=== PATIENT | male | born 1955 | race Caucasian/White ===

== ENCOUNTER 2024-09-30 13:44 | Emergency (ER) | payer MEDICARE, SELFPAY ==
--- NOTE | ~2024-09-30 | XR_ITS ---
EXAM: XR hand LT min 3V DATE: 09/30/2024 16:32 HISTORY: Lesion of hand . COMPARISON: None available. FINDINGS: Normal mineralization. No acute fracture or dislocation. Likely old left fourth distal tuf t fracture, healed in mild deformity No lytic or blastic lesion. Joint spaces are maintained. No eros ion or periosteal change. Ovoid 0.7 x 2.0 cm soft tissue density in the dorsal soft tissues, seen bes t in the lateral view at the level of the CMC joint, probably projecting over the proximal first inte rmetatarsal space in the frontal view. IMPRESSION: No acute osseous finding in the left hand. 0.7 x 2.0 cm dorsal soft tissue lesion. Reviewed, dictated and finalized at location K.
[2024-09-30 13:51] VITALS: BP 166/63; PULSE 62; RESP 20; TEMP 36.3; O2SAT 98
--- OUTSIDE RECORDS SUMMARY | 2024-09-30 15:53 | XMS_ITS | Encounter Summary ---
Author Organization [facility] Address 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 Gender Identity Not on file Sexual Orientation Not on file documented as of this encounter Plan of Treatment Upcoming Encounters Date Type Department Care Team (Late st Contact Info) Description 12/26/2024 3:00 PM CDT Office Visit [facility] [address] [address] [place] [address] [place] [address] documented as of this encounter Visit Diagnoses Not on filedocumented in this encounter Care Teams Dialysis Chief Equipment Technician Relationship Specialty Start Date End Date Naye Scott MD [address] [place] [address] PCP - General Internal Medicine 09/15/11 documented as of this encounter
--- OUTSIDE RECORDS SUMMARY | 2024-09-30 15:53 | XMS_ITS | Encounter Summary ---
Author Organization [facility] Address 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 Gender Identity Not on file Sexual Orientation Not on file documented as of this encounter Plan of Treatment Upcoming Encounters Date Type Department Care Team (Late st Contact Info) Description 12/26/2024 3:00 PM CDT Office Visit [facility] Internal Medicine [address] [address] [place] [address] [place] [address] documented as of this encounter Visit Diagnoses Not on filedocumented in this encounter Care Teams Social Worker Psychiatric Relationship Specialty Start Date End Date Naye Scott MD [address] [place] [address] PCP - General Internal Medicine 09/15/11 documented as of this encounter
--- OUTSIDE RECORDS SUMMARY | 2024-09-30 15:53 | XMS_ITS | Encounter Summary ---
Author Organization [facility] Address 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 DIRECTOR OF 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 Gender Identity Not on file Sexual Orientation Not on file documented as of this encounter Plan of Treatment Upcoming Encounters Date Type Department Care Team (Late st Contact Info) Description 12/26/2024 3:00 PM CDT Office Visit [facility] Internal Medicine [place] [address] [place] [address] [place] [address] [place] [address] documented as of this encounter Visit Diagnoses Diagnosis Type II or unspecified type diabetes mellitus without mention of complication, not stated as uncontrolled documented in this encounter Care Teams Risk Control Field Representative Relationship Specialty [place] [address] [place] [address] PCP - General Internal Medicine 09/15/11 documented as of this encounter
--- OUTSIDE RECORDS SUMMARY | 2024-09-30 15:53 | XMS_ITS | Encounter Summary ---
Author Organization [facility] Address 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 Gender Identity Not on file Sexual Orientation Not on file documented as of this encounter Plan of Treatment Upcoming Encounters Date Type Department Care Team (Late st Contact Info) Description 12/26/2024 3:00 PM CDT Office Visit [facility] Internal Medicine [place] [place] [address] [place] [address] [place] [address] documented as of this encounter Visit Diagnoses Diagnosis Unspecified essential hypertension documented in this encounter Care Teams Door Serviceman Relationship Specialty [place] [address] [place] [address] PCP - General Internal Medicine 09/15/11 documented as of this encounter
--- OUTSIDE RECORDS SUMMARY | 2024-09-30 15:53 | XMS_ITS | Encounter Summary ---
Author Organization [facility] Address 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 Gender Identity Not on file Sexual Orientation Not on file documented as of this encounter Plan of Treatment Upcoming Encounters Date Type Department Care Team (Late st Contact Info) Description 12/26/2024 3:00 PM CDT Office Visit [facility] Internal Medicine [address] [address] [place] [address] [place] [address] documented as of this encounter Visit Diagnoses Not on filedocumented in this encounter Care Teams Coupon Clerk Relationship Specialty Start Date End Date Naye Scott MD [address] [place] [address] PCP - General Internal Medicine 09/15/11 documented as of this encounter
--- OUTSIDE RECORDS SUMMARY | 2024-09-30 15:53 | XMS_ITS | Encounter Summary ---
Author Organization [facility] Address 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 Gender Identity Not on file Sexual Orientation Not on file documented as of this encounter Plan of Treatment Upcoming Encounters Date Type Department Care Team (Late st Contact Info) Description 12/26/2024 3:00 PM CDT Office Visit [facility] Internal Medicine [address] [address] [place] [address] [place] [address] documented as of this encounter Visit Diagnoses Not on filedocumented in this encounter Care Teams Tongsman Relationship Specialty Start Date End Date Naye Scott MD [address] [place] [address] PCP - General Internal Medicine 09/15/11 documented as of this encounter
--- OUTSIDE RECORDS SUMMARY | 2024-09-30 15:53 | XMS_ITS | Encounter Summary ---
Author Organization [facility] Address 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 Gender Identity Not on file Sexual Orientation Not on file documented as of this encounter Plan of Treatment Upcoming Encounters Date Type Department Care Team (Late st Contact Info) Description 12/26/2024 3:00 PM CDT Office Visit [facility] Internal Medicine [address] [address] [place] [address] [place] [address] documented as of this encounter Visit Diagnoses Not on filedocumented in this encounter Care Teams Associate Professor Physician Relationship Specialty Start Date End Date Naye Scott MD [address] [place] [address] PCP - General Internal Medicine 09/15/11 documented as of this encounter
--- OUTSIDE RECORDS SUMMARY | 2024-09-30 15:53 | XMS_ITS | Encounter Summary ---
Author Organization [facility] Address 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 Gender Identity Not on file Sexual Orientation Not on file documented as of this encounter Plan of Treatment Upcoming Encounters Date Type Department Care Team (Late st Contact Info) Description 12/26/2024 3:00 PM CDT Office Visit [facility] Internal Medicine [address] [address] [place] [address] [place] [address] documented as of this encounter Visit Diagnoses Not on filedocumented in this encounter Care Teams Retail Director Relationship Specialty Start Date End Date Naye Scott MD [address] [place] [address] PCP - General Internal Medicine 09/15/11 documented as of this encounter
--- OUTSIDE RECORDS SUMMARY | 2024-09-30 15:53 | XMS_ITS | Encounter Summary ---
Author Organization [facility] Address 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 Gender Identity Not on file Sexual Orientation Not on file documented as of this encounter Plan of Treatment Upcoming Encounters Date Type Department Care Team (Late st Contact Info) Description 12/26/2024 3:00 PM CDT Office Visit [facility] Internal Medicine [address] [address] [place] [address] [place] [address] documented as of this encounter Visit Diagnoses Not on filedocumented in this encounter Care Teams Telehealth Nurse Educator Relationship Specialty Start Date End Date Naye Scott MD [address] [place] [address] PCP - General Internal Medicine 09/15/11 documented as of this encounter
--- OUTSIDE RECORDS SUMMARY | 2024-09-30 15:53 | XMS_ITS | Encounter Summary ---
Author Organization [facility] Address 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 Gender Identity Not on file Sexual Orientation Not on file documented as of this encounter Plan of Treatment Upcoming Encounters Date Type Department Care Team (Late st Contact Info) Description 12/26/2024 3:00 PM CDT Office Visit [facility] Internal Medicine [address] [address] [place] [address] [place] [address] documented as of this encounter Visit Diagnoses Not on filedocumented in this encounter Care Teams Wallpaperer Relationship Specialty Start Date End Date Naye Scott MD [address] [place] [address] PCP - General Internal Medicine 09/15/11 documented as of this encounter
--- OUTSIDE RECORDS SUMMARY | 2024-09-30 15:53 | XMS_ITS | Encounter Summary ---
Author Organization [facility] Address 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 DIRECTOR Gender Identity Not on file Sexual Orientation Not on file documented as of this encounter Plan of Treatment Upcoming Encounters Date Type Department Care Team (Late st Contact Info) Description 12/26/2024 3:00 PM CDT Office Visit [facility] Internal Medicine [address] [address] [place] [address] [place] [address] documented as of this encounter Visit Diagnoses Not on filedocumented in this encounter Care Teams Brand Ambassadors Promotional Sales Relationship Specialty Start Date End Date Naye Scott MD [address] [place] [address] PCP - General Internal Medicine 09/15/11 documented as of this encounter
--- OUTSIDE RECORDS SUMMARY | 2024-09-30 15:53 | XMS_ITS | Encounter Summary ---
Author Organization [facility] Address [address] [place] [address] Care Team Providers Care Warehouse Team Leader Name Role Phone Naye Scott MD Primary Care Provider [phone] Encounter Details Date Type Department Care Team (Latest Contact Info) Description 09/26/2006 Outpatient Historical [facility] Rui Kilgore MD [address] [place] [address] DM w/o Complication Type II, Uncontrolled (Primary Dx) Social History Tobacco Use Types Packs/Day Years Used Date Smoking Tobacco: Never Assessed Sex and Gender Information Value Date Recorded Sex Assigned at Not on file Legal Sex Male 3:23 AM KIER HAND Gender Identity Not on file Sexual Orientation Not on file documented as of this encounter Plan of Treatment Upcoming Encounters Date Type Department Care Team (Late st Contact Info) Description 12/26/2024 3:00 PM CDT Office Visit [facility] Internal Medicine [place] [address] [place] [address] [place] [address] [place] [address] documented as of this encounter Visit Diagnoses Diagnosis Type II or unspecified type diabetes mellitus without mention of complication, uncontrolled- Primary documented in this encounter Care Teams Warehouse Team Leader Relationship Specialty [place] [address] [place] [address] PCP - General Internal Medicine 09/15/11 documented as of this encounter
--- OUTSIDE RECORDS SUMMARY | 2024-09-30 15:53 | XMS_ITS | Encounter Summary ---
Author Organization [facility] Address 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 Gender Identity Not on file Sexual Orientation Not on file documented as of this encounter Plan of Treatment Upcoming Encounters Date Type Department Care Team (Late st Contact Info) Description 12/26/2024 3:00 PM CDT Office Visit [facility] Internal Medicine [address] [address] [place] [address] [place] [address] documented as of this encounter Visit Diagnoses Not on filedocumented in this encounter Care Teams Underground Distribution Engineer Relationship Specialty Start Date End Date Naye Scott MD [address] [place] [address] PCP - General Internal Medicine 09/15/11 documented as of this encounter
--- OUTSIDE RECORDS SUMMARY | 2024-09-30 15:53 | XMS_ITS | Encounter Summary ---
Author Organization [facility] Address 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 Gender Identity Not on file Sexual Orientation Not on file documented as of this encounter Plan of Treatment Upcoming Encounters Date Type Department Care Team (Late st Contact Info) Description 12/26/2024 3:00 PM CDT Office Visit [facility] Internal Medicine [address] [address] [place] [address] [place] [address] documented as of this encounter Visit Diagnoses Not on filedocumented in this encounter Care Teams General Helper Relationship Specialty Start Date End Date Naye Scott MD [address] [place] [address] PCP - General Internal Medicine 09/15/11 documented as of this encounter
--- OUTSIDE RECORDS SUMMARY | 2024-09-30 15:53 | XMS_ITS | Encounter Summary ---
Author Organization [facility] Address 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 Gender Identity Not on file Sexual Orientation Not on file documented as of this encounter Plan of Treatment Upcoming Encounters Date Type Department Care Team (Late st Contact Info) Description 12/26/2024 3:00 PM CDT Office Visit [facility] Internal Medicine [address] [address] [place] [address] [place] [address] documented as of this encounter Visit Diagnoses Not on filedocumented in this encounter Care Teams Supervisor Soakers Relationship Specialty Start Date End Date Naye Scott MD [address] [place] [address] PCP - General Internal Medicine 09/15/11 documented as of this encounter
--- OUTSIDE RECORDS SUMMARY | 2024-09-30 15:53 | XMS_ITS | Encounter Summary ---
Author Organization [facility] Address 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 Gender Identity Not on file Sexual Orientation Not on file documented as of this encounter Plan of Treatment Upcoming Encounters Date Type Department Care Team (Late st Contact Info) Description 12/26/2024 3:00 PM CDT Office Visit [facility] Internal Medicine [address] [address] [place] [address] [place] [address] documented as of this encounter Visit Diagnoses Not on filedocumented in this encounter Care Teams Biomass Facilitator Relationship Specialty Start Date End Date Naye Scott MD [address] [place] [address] PCP - General Internal Medicine 09/15/11 documented as of this encounter
--- OUTSIDE RECORDS SUMMARY | 2024-09-30 15:53 | XMS_ITS | Encounter Summary ---
Author Organization [facility] Address 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 Gender Identity Not on file Sexual Orientation Not on file documented as of this encounter Plan of Treatment Upcoming Encounters Date Type Department Care Team (Late st Contact Info) Description 12/26/2024 3:00 PM CDT Office Visit [facility] Internal Medicine [address] [address] [place] [address] [place] [address] documented as of this encounter Visit Diagnoses Not on filedocumented in this encounter Care Teams Hardwood Floor Layer Relationship Specialty Start Date End Date Naye Scott MD [address] [place] [address] PCP - General Internal Medicine 09/15/11 documented as of this encounter
--- OUTSIDE RECORDS SUMMARY | 2024-09-30 15:53 | XMS_ITS | Encounter Summary ---
Author Organization [facility] Address 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 Gender Identity Not on file Sexual Orientation Not on file documented as of this encounter Plan of Treatment Upcoming Encounters Date Type Department Care Team (Late st Contact Info) Description 12/26/2024 3:00 PM CDT Office Visit [facility] Internal Medicine [address] [address] [place] [address] [place] [address] documented as of this encounter Visit Diagnoses Not on filedocumented in this encounter Care Teams Air Intercept Controller Supervisor Relationship Specialty Start Date End Date Naye Scott MD [address] [place] [address] PCP - General Internal Medicine 09/15/11 documented as of this encounter
--- OUTSIDE RECORDS SUMMARY | 2024-09-30 15:53 | XMS_ITS | Encounter Summary ---
Author Organization [facility] Address 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 Gender Identity Not on file Sexual Orientation Not on file documented as of this encounter Plan of Treatment Upcoming Encounters Date Type Department Care Team (Late st Contact Info) Description 12/26/2024 3:00 PM CDT Office Visit [facility] Internal Medicine [address] [address] [place] [address] [place] [address] documented as of this encounter Visit Diagnoses Not on filedocumented in this encounter Care Teams Child Care Nurse Relationship Specialty Start Date End Date Naye Scott MD [address] [place] [address] PCP - General Internal Medicine 09/15/11 documented as of this encounter
--- OUTSIDE RECORDS SUMMARY | 2024-09-30 15:53 | XMS_ITS | Encounter Summary ---
Author Organization [facility] Address 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 DIRECTOR Gender Identity Not on file Sexual Orientation Not on file documented as of this encounter Plan of Treatment Upcoming Encounters Date Type Department Care Team (Late st Contact Info) Description 12/26/2024 3:00 PM CDT Office Visit [facility] Internal Medicine [address] [address] [place] [address] [place] [address] documented as of this encounter Visit Diagnoses Not on filedocumented in this encounter Care Teams Associate Accountant Relationship Specialty Start Date End Date Naye Scott MD [address] [place] [address] PCP - General Internal Medicine 09/15/11 documented as of this encounter
--- OUTSIDE RECORDS SUMMARY | 2024-09-30 15:53 | XMS_ITS | Encounter Summary ---
Author Organization [facility] Address 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 Gender Identity Not on file Sexual Orientation Not on file documented as of this encounter Plan of Treatment Upcoming Encounters Date Type Department Care Team (Late st Contact Info) Description 12/26/2024 3:00 PM CDT Office Visit [facility] [place] Internal Medicine [address] [address] [place] [address] [place] [address] documented as of this encounter Visit Diagnoses Not on filedocumented in this encounter Care Teams Manager Nicu Relationship Specialty Start Date End Date Naye Scott MD [address] [place] [address] PCP - General Internal Medicine 09/15/11 documented as of this encounter
--- OUTSIDE RECORDS SUMMARY | 2024-09-30 15:53 | XMS_ITS | Encounter Summary ---
Author Organization [facility] Address 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 Gender Identity Not on file Sexual Orientation Not on file documented as of this encounter Plan of Treatment Upcoming Encounters Date Type Department Care Team (Late st Contact Info) Description 12/26/2024 3:00 PM CDT Office Visit [facility] Internal Medicine [address] [place] [address] [place] [address] [place] [address] documented as of this encounter Visit Diagnoses Diagnosis Essential hypertension, benign- Primary documented in this encounter Care Teams Aeronautical Engineering Officer Relationship Specialty Start Date End Date Naye Scott MD [address] [place] [address] PCP - General Internal Medicine 09/15/11 documented as of this encounter
--- OUTSIDE RECORDS SUMMARY | 2024-09-30 15:53 | XMS_ITS | Encounter Summary ---
Author Organization [facility] Address 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 ENGINE TESTER Gender Identity Not on file Sexual Orientation Not on file documented as of this encounter Plan of Treatment Upcoming Encounters Date Type Department Care Team (Late st Contact Info) Description 12/26/2024 3:00 PM CDT Office Visit [facility] Internal Medicine [address] [address] [place] [address] [place] [address] documented as of this encounter Procedures Procedure Name Priority Date/Time Associated Diagnosis Comments ALT Routine 06/11/2007 4:40 PM ROCKET ENGINE TESTER HEMOGLOBIN A1C Routine 06/11/2007 4:40 PM ROCKET ENGINE TESTER LIPID PANEL Routine 06/11/2007 4:40 PM ROCKET ENGINE TESTER BASIC METABOLIC PANEL Routine 06/11/2007 4:40 PM ROCKET ENGINE TESTER documented in this encounter Results * (ABNORMAL) HEMOGLOBIN A1C (06/11/2007 4:40 PM ROCKET ENGINE TESTER) Pathologist [facility] HEMOGLOBIN A1C 8.3(H) 4.1 - 6.1 % of Hgb INTERFACE SYSTEM GLUCOSE, MEAN BLOOD 218 mg/dL INTERFACE SYSTEM 06/11/2007 4:40 PM ROCKET ENGINE TESTER Rui Kilgore MD CHEMISTRY ORDERABLES Edited Performing Organization Address [facility] Co de Phone Number INTERFACE SYSTEM Refer to clinic/hospital department * ALT (06/11/2007 4:40 PM ROCKET ENGINE TESTER) Pathologist [facility] ALT 31 0 - 41 U/L INTERFACE SYSTEM 06/11/2007 4:40 PM ROCKET ENGINE TESTER Rui Kilgore MD CHEMISTRY ORDERABLES Edited Performing Organization Address [facility] Phone Number INTERFACE SYSTEM Refer to clinic/hospital department * (ABNORMAL) LIPID PANEL (06/11/2007 4:40 PM ROCKET ENGINE TESTER) Pathologist [facility] CHOLESTEROL 244(H) 100 - 199 mg/dL INTERFACE SYSTEM TRIGLYCERIDE 222(H) 10 - 149 mg/dL INTERFACE SYSTEM HDL 41 40 - 59 mg/dL INTERFACE SYSTEM CHOL/HDL RATIO 6.0(H) 2.0 - 5.0 INTER FACE SYSTEM LDL CALCULATED 159(H) <=99 mg/dL INTERFACE SYSTEM LIPID PANEL COMMENT See Below INTERFACE SYSTEM Comment: The adult ATP and pediatric NCEP classifications for lipids are available on the [facility]an[facility] at: [email or web address] Select: Lab Policies and Procedures,Current Select: Lipid Panel Interpretation 06/11/2007 4:40 PM ROCKET ENGINE TESTER Rui Kilgore MD CHEMISTRY ORDERABLES Edited Performing Organization Address [facility] Co de Phone Number INTERFACE SYSTEM Refer to clinic/hospital department * (ABNORMAL) BASIC METABOLIC PANEL (06/11/2007 4:40 PM ROCKET ENGINE TESTER) SODIUM 140 135 - 145 mmol/L INTERFACE SYSTEM POTASSIUM 2.9(L) 3.5 - 4.9 mmol/L INTERFACE SYSTEM CHLORIDE 98 96 - 108 mmol/L INTERFACE SYSTEM GLUCOSE 95 65 - 99 mg/dL INTERFACE SYSTEM CREATININE 1.11 0.67 - 1.17 mg/dL INTERFACE SYSTEM CALCIUM 9.1 8.4 - 10.2 mg/dL INTERFACE SYSTEM BUN 17 6 - 20 mg/dL INTERFACE SYSTEM CO2 32(H) 22 - 30 mmol/L INTERFACE SYSTEM GFR, >60 >=60 mL/min/1. 7 sq meter INTERFACE SYSTEM GFR >60 >=60 mL/min/1. 7 sq meter INTERFACE SYSTEM Comment: Estimated GFR rate interpretative information for both Americans and non- Americans is available on the [facility] Intran[facility] at: [email or web address] Select: Lab Policies and Procedures Select: Reference Ranges - GFR 06/11/2007 4:40 PM ROCKET ENGINE TESTER us Rui Kilgore MD CHEMISTRY ORDERABLES Edited INTERFACE SYSTEM Refer to clinic/hospital department documented in this encounter Visit Diagnoses Diagnosis Type II or unspecified type diabetes mellitus without mention of complication, not stated as uncontrolled documented in this encounter Care Teams Equipment Maintenance Tech Relationship Specialty [place] [address] [place] [address] PCP - General Internal Medicine 09/15/11 documented as of this encounter
--- OUTSIDE RECORDS SUMMARY | 2024-09-30 15:53 | XMS_ITS | Encounter Summary ---
Author Organization [facility] Address 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 Gender Identity Not on file Sexual Orientation Not on file documented as of this encounter Plan of Treatment Upcoming Encounters Date Type Department Care Team (Late st Contact Info) Description 12/26/2024 3:00 PM CDT Office Visit [facility] Internal Medicine [address] [address] [place] [address] [place] [address] documented as of this encounter Visit Diagnoses Not on filedocumented in this encounter Care Teams Living Supervisor Relationship Specialty Start Date End Date Naye Scott MD [address] [place] [address] PCP - General Internal Medicine 09/15/11 documented as of this encounter
--- OUTSIDE RECORDS SUMMARY | 2024-09-30 15:53 | XMS_ITS | Encounter Summary ---
Author Organization [facility] Address 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 Gender Identity Not on file Sexual Orientation Not on file documented as of this encounter Plan of Treatment Upcoming Encounters Date Type Department Care Team (Late st Contact Info) Description 12/26/2024 3:00 PM CDT Office Visit [facility] Internal Medicine [address] [place] [address] [place] [address] [place] [address] documented as of this encounter Visit Diagnoses Diagnosis Essential hypertension, benign- Primary documented in this encounter Care Teams Administrative Support Assistant Relationship Specialty Start Date End Date Naye Scott MD [address] [place] [address] PCP - General Internal Medicine 09/15/11 documented as of this encounter
--- OUTSIDE RECORDS SUMMARY | 2024-09-30 15:53 | XMS_ITS | Encounter Summary ---
Author Organization [facility] Address 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 Gender Identity Not on file Sexual Orientation Not on file documented as of this encounter Plan of Treatment Upcoming Encounters Date Type Department Care Team (Late st Contact Info) Description 12/26/2024 3:00 PM CDT Office Visit [facility] Internal Medicine [address] [place] [address] [place] [address] [place] [address] documented as of this encounter Visit Diagnoses Diagnosis Personal history of other diseases of circulatory system- Primary documented in this encounter Care Teams Auditor Supervisor Relationship Specialty Start Date End Date Naye Scott MD [address] [place] [address] PCP - General Internal Medicine 09/15/11 documented as of this encounter
--- OUTSIDE RECORDS SUMMARY | 2024-09-30 15:53 | XMS_ITS | Encounter Summary ---
Author Organization [facility] Address 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 Gender Identity Not on file Sexual Orientation Not on file documented as of this encounter Plan of Treatment Upcoming Encounters Date Type Department Care Team (Late st Contact Info) Description 12/26/2024 3:00 PM CDT Office Visit [facility] Internal Medicine [address] [address] [place] [address] [place] [address] documented as of this encounter Visit Diagnoses Not on filedocumented in this encounter Care Teams Credit Card Specialist Relationship Specialty Start Date End Date Naye Scott MD [address] [place] [address] PCP - General Internal Medicine 09/15/11 documented as of this encounter
--- OUTSIDE RECORDS SUMMARY | 2024-09-30 15:53 | XMS_ITS | Encounter Summary ---
Author Organization [facility] Address 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 Gender Identity Not on file Sexual Orientation Not on file documented as of this encounter Plan of Treatment Upcoming Encounters Date Type Department Care Team (Late st Contact Info) Description 12/26/2024 3:00 PM CDT Office Visit [facility] Internal Medicine [address] [address] [place] [address] [place] [address] documented as of this encounter Procedures Procedure Name Priority Date/Time Associated Diagnosis Comments HEMOGLOBIN AND HEMATOCRIT Routine 10/11/2004 3:10 PM CDT BASIC METABOLIC PANEL Routine 10/11/2004 3:10 PM CDT documented in this encounter Results * (ABNORMAL) HEMOGLOBIN AND HEMATOCRIT (10/11/2004 3:10 PM CDT) HEMOGLOBIN 12.8(L) 13.6 - 16.5 g/dL INTERFACE SYSTEM HEMATOCRIT 37.9(L) 40.0 - 48.0 % INTERFACE SYSTEM 10/11/2004 3:10 PM CDT Blake Flor Sr., MD HEMATOLOGY ORDERABLES Fi nal Result Performing Organization Address [facility] de Phone Number INTERFACE SYSTEM Refer to clinic/hospital department * (ABNORMAL) BASIC METABOLIC PANEL (10/11/2004 3:10 PM CDT) GLUCOSE 116(H) 65 - 109 mg/dL INTERFACE SYSTEM CREATININE 1.2 0.5 - 1.3 mg/dL INTERFACE SYSTEM CALCIUM 9.5 8.6 - 10.2 mg/dL INTERFACE SYSTEM BUN 12 6 - 20 mg/dL INTERFACE SYSTEM SODIUM 141 135 - 145 mmol/L INTERFACE SYSTEM POTASSIUM 3.3(L) 3.5 - 4.9 mmol/L INTERFACE SYSTEM CHLORIDE 101 96 - 108 mmol/L INTERFACE SYSTEM CO2 28 22 - 30 mmol/L INTERFACE SYSTEM 10/11/2004 3:10 PM CDT Blake Flor Sr., MD CHEMISTRY ORDERABLES Fin al Result Performing Organization Address [facility] de Phone Number INTERFACE SYSTEM Refer to clinic/hospital department documented in this encounter Visit Diagnoses Diagnosis Umbilical hernia with obstruction- Primary documented in this encounter Care Teams Band Booker Relationship Specialty [place] [address] [place] [address] PCP - General Internal Medicine 09/15/11 documented as of this encounter
--- OUTSIDE RECORDS SUMMARY | 2024-09-30 15:53 | XMS_ITS | Encounter Summary ---
Author Organization [facility] Address [address] [place] [address] Care Team Providers Care Seed Production Field Supervisor Name Role Phone Naye Scott MD Primary Care Provider [phone] Encounter Details Date Type Department Care Team (Late st Contact Info) Description 01/07/2001 Outpatient Historical [facility] Internal Medicine [address] [address] Rui Kilgore MD [address] [place] [address] Social History Tobacco Use Types Packs/Day Years Used Date Smoking Tobacco: Never Assessed Sex and Gender Information Value Date Recorded Sex Assigned at Not on file Legal Sex Male 3:23 AM BOX COVERER HAND Gender Identity Not on file Sexual Orientation Not on file documented as of this encounter Plan of Treatment Upcoming Encounters Date Type Department Care Team (Late st Contact Info) Description 12/26/2024 3:00 PM CDT Office Visit [facility] Internal Medicine [address] [address] [place] [address] [place] [address] documented as of this encounter Visit Diagnoses Not on filedocumented in this encounter Care Teams Seed Production Field Supervisor Relationship Specialty Start Date End Date Naye Scott MD [address] [place] [address] PCP - General Internal Medicine 09/15/11 documented as of this encounter
--- OUTSIDE RECORDS SUMMARY | 2024-09-30 15:53 | XMS_ITS | Encounter Summary ---
Author Organization [facility] Address 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 Gender Identity Not on file Sexual Orientation Not on file documented as of this encounter Plan of Treatment Upcoming Encounters Date Type Department Care Team (Late st Contact Info) Description 12/26/2024 3:00 PM CDT Office Visit [facility] Internal Medicine [address] [address] [place] [address] [place] [address] documented as of this encounter Visit Diagnoses Not on filedocumented in this encounter Care Teams Demo Specialist Relationship Specialty Start Date End Date Naye Scott MD [address] [place] [address] PCP - General Internal Medicine 09/15/11 documented as of this encounter
--- OUTSIDE RECORDS SUMMARY | 2024-09-30 15:53 | XMS_ITS | Encounter Summary ---
Author Organization [facility] Address 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 Gender Identity Not on file Sexual Orientation Not on file documented as of this encounter Plan of Treatment Upcoming Encounters Date Type Department Care Team (Late st Contact Info) Description 12/26/2024 3:00 PM CDT Office Visit [facility] Internal Medicine [address] [address] [place] [address] [place] [address] documented as of this encounter Visit Diagnoses Not on filedocumented in this encounter Care Teams Jewel Hole Cornerer Relationship Specialty Start Date End Date Naye Scott MD [address] [place] [address] PCP - General Internal Medicine 09/15/11 documented as of this encounter
--- OUTSIDE RECORDS SUMMARY | 2024-09-30 15:54 | XMS_ITS | Encounter Summary ---
Author Organization [facility] Address 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 Gender Identity Not on file Sexual Orientation Not on file documented as of this encounter Plan of Treatment Upcoming Encounters Date Type Department Care Team (Late st Contact Info) Description 12/26/2024 3:00 PM CDT Office Visit [facility] Internal Medicine [address] [address] [place] [address] [place] [address] documented as of this encounter Visit Diagnoses Not on filedocumented in this encounter Care Teams Chief Reservoir Engineering Relationship Specialty Start Date End Date Naye Scott MD [address] [place] [address] PCP - General Internal Medicine 09/15/11 documented as of this encounter
--- OUTSIDE RECORDS SUMMARY | 2024-09-30 15:54 | XMS_ITS | Encounter Summary ---
Author Organization [facility] Address [address] [place] [address] Care Team Providers Care Analytical Tech Name Role Phone Naye Scott MD Primary Care Provider [phone] Encounter Details Date Type Department Care Team (Late Contact Info) Description 04/15/1999 Outpatient Historical [facility] Internal Medicine [address] [address] Rui Kilgore MD [address] [place] [address] Social History Tobacco Use Types Packs/Day Years Used Date Smoking Tobacco: Never Assessed Sex and Gender Information Value Date Recorded Sex Assigned at Not on file Legal Sex Male 3:23 AM ENROLLMENT COORDINATOR Gender Identity Not on file Sexual Orientation Not on file documented as of this encounter Plan of Treatment Upcoming Encounters Date Type Department Care Team (Late st Contact Info) Description 12/26/2024 3:00 PM CDT Office Visit [facility] Internal Medicine [address] [address] [place] [address] [place] [address] documented as of this encounter Visit Diagnoses Not on filedocumented in this encounter Care Teams Analytical Tech Relationship Specialty Start Date End Date Naye Scott MD [address] [place] [address] PCP - General Internal Medicine 09/15/11 documented as of this encounter
--- OUTSIDE RECORDS SUMMARY | 2024-09-30 15:54 | XMS_ITS | Encounter Summary ---
Author Organization [facility] Address [address] [place] [address] Care Team Providers Care Cw Operator Name Role Phone Naye Scott MD Primary Care Provider [phone] Encounter Details Date Type Department Care Team (Late st Contact Info) Description 08/19/1998 Outpatient Historical [facility] CONSULTING ENGINEER Rui Kilgore MD [address] [place] [address] Social History Tobacco Use Types Packs/Day Years Used Date Smoking Tobacco: Never Assessed Sex and Gender Information Value Date Recorded Sex Assigned at Not on file Legal Sex Male 3:23 AM EARLY INTERVENTION SPECIALIST Gender Identity Not on file Sexual Orientation Not on file documented as of this encounter Plan of Treatment Upcoming Encounters Date Type Department Care Team (Late st Contact Info) Description 12/26/2024 3:00 PM CDT Office Visit [facility] Internal Medicine [place] [address] [place] [address] [place] [address] [place] [address] documented as of this encounter Visit Diagnoses Not on filedocumented in this encounter Care Teams Cw Operator Relationship Specialty Start Date End Date Naye Scott MD [address] [place] [address] PCP - General Internal Medicine 09/15/11 documented as of this encounter
--- OUTSIDE RECORDS SUMMARY | 2024-09-30 15:54 | XMS_ITS | Encounter Summary ---
Author Organization [facility] Address 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 Gender Identity Not on file Sexual Orientation Not on file documented as of this encounter Plan of Treatment Upcoming Encounters Date Type Department Care Team (Late st Contact Info) Description 12/26/2024 3:00 PM CDT Office Visit [facility] Internal Medicine [address] [address] [place] [address] [place] [address] documented as of this encounter Visit Diagnoses Not on filedocumented in this encounter Care Teams Box Machine Operator Relationship Specialty Start Date End Date Naye Scott MD [address] [place] [address] PCP - General Internal Medicine 09/15/11 documented as of this encounter
--- OUTSIDE RECORDS SUMMARY | 2024-09-30 15:54 | XMS_ITS | Encounter Summary ---
Author Organization [facility] Address [address] [place] [address] Care Team Providers Care Car Repairer Pullman Name Role Phone Naye Scott MD Primary Care Provider Encounter Details Date Type Department Care Team (Late st Contact Info) Description 07/28/[address] 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 Internal Medicine [address] [address] [place] [address] [place] [address] documented as of this encounter Visit Diagnoses Not on filedocumented in this encounter Care Teams Car Repairer Pullman Relationship Specialty Start Date End Date Naye Scott MD [address] [place] [address] PCP - General Internal Medicine 09/15/11 documented as of this encounter
--- OUTSIDE RECORDS SUMMARY | 2024-09-30 15:54 | XMS_ITS | Encounter Summary ---
Author Organization [facility] Address [address] [place] [address] Care Team Providers Care Commercial Journeyman Electrician Name Role Phone Naye Scott MD Primary Care Provider [phone] Encounter Details Date Type Department Care Team (Late st Contact Info) Description 02/07/2008 Outpatient Historical [facility] Erika Huber MD NO ADDRESS ON FILE Cellulitis and Abscess of Unspecified Site Social History Tobacco Use Types Packs/Day Years Used Date Smoking Tobacco: Never Alcohol Use Standard Drinks/Week Comments Not Asked 0 (1 standard drink = 0.6 oz pur e alcohol) Sex and Gender Information Value Date Recorded Sex Assigned at Not on file Legal Sex Male 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 Gender Identity Not on file Sexual Orientation Not on file documented as of this encounter Plan of Treatment Upcoming Encounters Date Type Department Care Team (Late st Contact Info) Description 12/26/2024 3:00 PM CDT Office Visit [facility] Internal Medicine [address] [address] [place] [address] [place] [address] documented as of this encounter Visit Diagnoses Diagnosis Cellulitis and abscess of unspecified site documented in this encounter Care Teams Commercial Journeyman Electrician Relationship Specialty Start Date End Date Naye Scott MD [address] [place] [address] PCP - General Internal Medicine 09/15/11 documented as of this encounter
--- OUTSIDE RECORDS SUMMARY | 2024-09-30 15:54 | XMS_ITS | Encounter Summary ---
Author Organization [facility] Address [address] [place] [address] Care Team Providers Care Supervisor Uranium Processing Name Role Phone Naye Scott MD Primary Care Provider [phone] Encounter Details Date Type Department Care Team (Late st Contact Info) Description 06/16/2003 Outpatient Historical [facility] Kilgore, Rui Ng MD [address] [place] [address] COUGH (Primary Dx) Social History Tobacco Use Types Packs/Day Years Used Date Smoking Tobacco: Never Assessed Sex and Gender Information Value Date Recorded Sex Assigned at Not on file Legal Sex Male 3:23 AM PHOTOGRAPHER PORTRAIT Gender Identity Not on file Sexual Orientation Not on file documented as of this encounter Plan of Treatment Upcoming Encounters Date Type Department Care Team (Late st Contact Info) Description 12/26/2024 3:00 PM CDT Office Visit [facility] Internal Medicine [place] [address] [place] [address] [place] [address] [place] [address] documented as of this encounter Visit Diagnoses Diagnosis Cough- Primary documented in this encounter Care Teams Supervisor Uranium Processing Relationship Specialty [place] [address] [place] [address] PCP - General Internal Medicine 09/15/11 documented as of this encounter
--- OUTSIDE RECORDS SUMMARY | 2024-09-30 15:54 | XMS_ITS | Encounter Summary ---
Author Organization [facility] Address 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 Gender Identity Not on file Sexual Orientation Not on file documented as of this encounter Plan of Treatment Upcoming Encounters Date Type Department Care Team (Late st Contact Info) Description 12/26/2024 3:00 PM CDT Office Visit [facility] Internal Medicine [address] [address] [place] [address] [place] [address] documented as of this encounter Visit Diagnoses Not on filedocumented in this encounter Care Teams Window Maker Relationship Specialty Start Date End Date Naye Scott MD [address] [place] [address] PCP - General Internal Medicine 09/15/11 documented as of this encounter
--- OUTSIDE RECORDS SUMMARY | 2024-09-30 15:54 | XMS_ITS | Encounter Summary ---
Author Organization [facility] Address [address] [place] [address] Care Team Providers Care Event Organizer Name Role Phone Naye Scott MD Primary Care Provider [phone] Encounter Details Date Type Department Care Team (Late st Contact Info) Description 06/16/2003 Outpatient Historical [facility] Internal Medicine [address] [address] Rui Kilgore MD [address] [place] [address] Social History Tobacco Use Types Packs/Day Years Used Date Smoking Tobacco: Never Assessed Sex and Gender Information Value Date Recorded Sex Assigned at Not on file Legal Sex Male 3:23 AM SUPERVISOR POST WAVE Gender Identity Not on file Sexual Orientation Not on file documented as of this encounter Plan of Treatment Upcoming Encounters Date Type Department Care Team (Late st Contact Info) Description 12/26/2024 3:00 PM CDT Office Visit [facility] Internal Medicine [address] [address] [place] [address] [place] [address] documented as of this encounter Visit Diagnoses Not on filedocumented in this encounter Care Teams Event Organizer Relationship Specialty Start Date End Date Naye Scott MD [address] [place] [address] PCP - General Internal Medicine 09/15/11 documented as of this encounter
--- OUTSIDE RECORDS SUMMARY | 2024-09-30 15:54 | XMS_ITS | Clinical Summary ---
Author Organization [facility] [place] Address [address] [place] [address] Care Team Providers Care Curing Oven Attendant Name Role Phone Naye Scott MD Primary Care Provider [phone] Allergies No known active allergies Medications ASPIRIN 81 MG TAB 1 Tab daily. Active Insulin Wood, Disposable, (NOVOFINE 32) 32 gauge x 1/4 Needle With meals and bedtime. 200 Each 02/07/20 16 Active cyanocobalamin (VITAMIN B-12) 500 mcg tablet Take 1,000 mcg by mouth daily. Active Blood-Glucose Meter (ONETOUCH VERIO FLEX) Check blood sugar three times daily. Dx E11.9, detention insulin use. 1 Each 3 06/10/19 19 Active insulin NPH-regular (NovoLIN 70/30 U-100 Insulin) 100 unit/mL (70-30) vial 40 units in morning and 40 units with dinner. 10 mL 01/28/20 22 Active amLODIPine (NORVASC) 10 mg tabletIndications: Essential hypertension Take 1 Tablet (10 mg) by mouth daily. 100 Tablet 3 08/24/19 24 Active blood sugar diagnostic (OneTouch Verio test strips) Strip Check blood sugar three times daily. Dx E11.9, rodent exterminator insulin use. Verio strip 100 Each 08/24/19 24 Active lancets (One Touch Delica) 33 gauge Check Blood sugar three timesdaily. Dx E11.9, rodent exterminator insulin use 100 Each 08/24/19 24 Active spironolactone (ALDACTONE) 25 mg tabletIndications: Essential hypertension TAKE 1 TABLET BY MOUTH ONCE DAILY . APPOINTMENT REQUIRED FOR FUTURE REFILLS 100 Tablet 3 08/24/19 24 Active metFORMIN (GLUCOPHAGE) 1,000 mg tabletIndications: Type 2 diabetes mellitus with stage 3a chronic kidney disease, without long-term current use of insulin ([facility]) TAKE 1 TABLET BY MOUTH TWICE DAILY WITH MEALS. 200 Tablet 3 02/26/20 24 Active Blood-Glucose Sensor (FreeStyle Mariam 3 Sensor) DeviceIndications: Type 2 diabetes mellitus with stage 3a chronic kidney disease, with long-term current use of insulin ([facility]) Use to monitor glucose continuously. Apply a sensor every 14 days. 6 Each 3 06/26/19 25 Active lisinopriL (PRINIVIL) 20 mg tabletIndications: Essential hypertension Take 1 tablet by mouth once daily 100 Tablet 3 08/07/19 25 Active lisinopril-hydroCH LOROthiazide (ZESTORETIC) 20-25 mg tabletIndications: Essential hypertension Take 1 tablet by mouth once daily 100 Tablet 3 08/07/19 25 Active metoprolol tartrate (LOPRESSOR) 50 mg tabletIndications: Essential hypertension TAKE 1 & 1/2 (ONE & ONE-HALF) TABLETS BY MOUTH TWICE DAILY 300 Tablet 3 08/26/19 25 Active simvastatin (ZOCOR) 20 mg tabletIndications: Mixed hyperlipidemia Take 1 tablet by mouth once daily 100 Tablet 3 09/05/19 25 Active simvastatin (ZOCOR) 20 mg tabletIndications: Mixed hyperlipidemia Take 1 tablet by mouth once daily 100 Tablet 3 08/24/19 24 025 Discontin ued(Reord er) Active Problems Problem Noted Date Diagnosed Date Hyperaldosteronism - probable 11/16/2007 Overview (11/16/2007): Refractory hypertension + hypokalemia + suggestive PRA/aldosterone level. MRI adrenals shows no tumor. 2007. Essential hypertension Overview (09/06/2007): Quite refractory. Neg dex supp test 2000. Nl captopril renal scan 1999. Hyperlipidemia Obesity (BMI 30.0-34.9) Resolved Problems Problem Noted Date Diagnosed Date Resolved Date Obesity 09/06/2007 09/06/2007 Type 2 diabetes mellitus wit hout complication, with long-term current use of insulin 08/24/2023 Encounters Date Type Department Care Team Description 09/09/2024 External Device Data STL ABSTRACTION Provider, Abstract 09/04/2024 [facility] Internal Medicine [id number] [place] [phone] Naye Scott MD Mixed hyperlipidemia 09/02/2024 External Device Data STL ABSTRACTION Provider, Abstract 08/25/2024 [facility] Internal Medicine [id number] [place] [phone] Naye Scott MD Essential hypertension 08/13/2024 External Device Data STL ABSTRACTION Provider, Abstract 08/06/2024 [facility] Internal Medicine [id number] [place] [address] Naye Scott MD Essential hypertension 08/04/2024 External Device Data STL ABSTRACTION Provider, Abstract 07/22/2024 External Device Data STL ABSTRACTION Provider, Abstract 07/17/2024 Medication Prior Auth Encounter [facility] Prescription Management Dept [address] [place] [address] [place] [address] Latricia Rose, PHARMACIST from Last 3 Months Immunizations Immunization Administration Dates Next Due (ADACEL/BOOSTRIX)(10 YR UP) TDAP VACCINE, 0.5ML, IM 11/12/2021 (PFIZER)(12 YR UP) COVID-19 VACCINE - EMERGENCY USE AUTHORIZATION, MRNA, [id number](PF) 30 MCG/0.3 ML IM SUSP 02/21/2021,01/31/2021 (PNEUMOVAX 23)(50 YRS UP) PN EUMOCOCCAL POLYSACCHARIDE (PPV23) 0.5 ML, IM 07/24/2008 (PREVNAR 20)(6 WKS UP) PNEUM OCOCCAL CONJUGATE VACCINE 20-VALENT (PCV20), POLYSACCHARIDE [id number] CONJUGATE, ADJUVANT 0.5 ML (PF) IM 01/27/2022 INFLUENZA VACCINE HIGH DOSE QUADRIVALENT 65 YR UP PF IM 02/09/2023 INFLUENZA VACCINE HIGH DOSE TRIVALENT SPLIT VIRUS, (65 YR UP), 0.5ML (PF), IM 02/26/2024 INFLUENZA VACCINE QUADRIVALE NT 3 YR UP PF IM 01/27/2016 INFLUENZA VACCINE QUADRIVALE NT 6 MOS UP PF IM 03/10/2019,03/14/2018 Influenza Seasonal Unspecifi ed Formulation IM 01/26/2022,03/12/2012,03/19/2010 Family History Medical History Relation Name Comments Diabetes Brother 1 High Cholesterol Brother 1 Hypertension Brother 1 Diabetes Brother 2 High Cholesterol Brother 2 Hypertension Brother 2 Cancer Brother 3 Lacho Diabetes Brother 3 Lacho High Cholesterol Brother 3 Lacho Hypertension Brother 3 Lacho Heart Disease Father Maurilio Hypertension Father Maurilio Stroke Mother Hallie Healthy Sister Colon Cancer Neg Hx Relation Name Status Comments Brother 1 Alive Brother 2 Alive Brother 3 Lacho Father Maurilio Mother Hallie Sister Alive Social History Tobacco Use Types Packs/Day Years Used Date Smoking Tobacco: Former Cigarettes 0.3 5 Smokeless Tobacco: Never Tobacco Cessation:Counseling Given: Not Answered Comments:quit about 40 yrs ago Alcohol Use Standard Drinks/Week Comments Not Currently 0 (1 standard drink = 0.6 oz pur e alcohol) rare Social Connections Answer Date Recorded In a typical week, how many times do you talk on the phone with family, friends, or neighbors? Never 03/16/2020 How often do you get together with friends or re latives? Never 03/16/2020 How often do you attend scientologist or adventism serv ices? Never 03/16/2020 Do you belong to any clubs o r organizations such as scientologist groups, unions, fraternal or athletic groups, or school groups? Yes 03/16/2020 Attends Club or Organization Meetings Not on claude e 03/16/2020 Marital Status Not on file 03/16/2020 Financial Resource Strain Answer Date R ecorded How hard is it for you to pa y for the very basics like food, housing, medical care, and heating? Not very hard 01/27/2022 Food Insecurity Answer Date Recorded In the past 12 months, have you worried that your food would run out before you had money to buy more? Never true 01/27/2022 In the past 12 months, did y ou run out of food and didn't have money to buy more? Never true 01/27/2022 Transportation Needs Answer Date Record ed In the past 12 months, has l ack of transportation kept you from medical appointments or from getting medications? No 01/27/2022 Lack of Transportation (Non-Medical) Not on file 01/27/2022 Education Answer Date Recorded What is the highest level of school you have completed or the highest degree you have received? Associate degree: occupational, technical, or vocational program 03/16/2020 Sex and Gender Information Value Date Recorded Sex Assigned at Not on file Legal Sex Male 3:23 AM CORONER FORENSIC TECHNICIAN Gender Identity Not on file Sexual Orientation Not on file Occupation Industry Job Start Date Job End Date Not on file Not on file Not on file Not on file Last Filed Vital Signs Vital Sign Reading Time Taken Comments Blood Pressure 136/60 06/26/2024 1:20 PM CORONER FORENSIC TECHNICIAN Pulse 65 06/26/2024 1:20 PM CORONER FORENSIC TECHNICIAN Temperature 36.5 C (97.7 F) 06/26/2024 1:20 PM CORONER FORENSIC TECHNICIAN Respiratory Rate 14 06/26/2024 1:20 PM CORONER FORENSIC TECHNICIAN Oxygen Saturation 96% 06/26/2024 1:20 PM CORONER FORENSIC TECHNICIAN Inhaled Oxygen Concentration - - Weight 114.3 kg (252 lb) 06/26/2024 1:20 PM CORONER FORENSIC TECHNICIAN Height 177.8 cm (5' 10 ) 06/26/2024 1:20 PM CORONER FORENSIC TECHNICIAN Body Mass Index 36.16 06/26/2024 1:20 PM CORONER FORENSIC TECHNICIAN Plan of Treatment Upcoming Encounters Date Type Department Care Team (Late st Contact Info) Description 12/26/2024 3:00 PM CDT Office Visit [facility] Internal Medicine [address] [phone] Naye Scott MD [address] [place] [phone] Health Maintenance Due Date Last Done Comments FIT-DNA Q 3 years 1998 Flex Sig/CT Colonography Q 5 years 1998 ZOSTER VACCINE (1 of 2) 2003 FIT/FOBT Q 1 year 06/22/2007 06/22/2006, , 07/28/2003 RSV VACCINE (60+ or ) (1 - Risk 60-74 years 1-dose series) 2013 Abdominal Aortic Aneurysm (A AA) Screening 2018 COLORECTAL SCREENING 11/14/2018 11/14/2013, 11/14/2013, 10/04/2009, Additional history exists Colorectal Cancer Screening 11/14/2018 COVID-19 Vaccine (3 - 2023-2 5 season) 2024 02/21/2021, 01/31/2021 DIABETES ANNUAL FOOT EXAM 02/10/20242022, 01/27/2022, 06/10/2018, Additional history exists DIABETES MICROALBUMIN ANNUAL SCREEN 08/21/2024 08/22/2023, 01/03/2023, 01/27/2022, Additional history exists LDL CHOLESTEROL ANNUAL 08/21/2024 , 01/27/2022, 09/12/2018, Additional history exists DIABETES HBA1C Q 6 MONTHS 12/24/20242024, 02/26/2024, 08/24/2023, Additional history exists Traditional Medicare (ACO) A nnual Wellness Visit 02/26/2025 02/26/2024, 02/09/2023, 01/27/2022, Additional history exists DIABETES ANNUAL RETINAL EXAM 05/15/2025 05/15/2024 DIABETES: A1C (Auto Order) 06/26/202506/26, 02/26/2024, 08/24/2023, Additional history exists DTAP/TDAP/TD VACCINES (2 - T d or Tdap) 11/13/2031 11/12/2021 PNEUMOCOCCAL VACCINE 50+ YEARS Completed 01/27/2022 , 07/24/2008 INFLUENZA VACCINE Completed 02/26/2024, , 01/26/2022, Additional history exists Procedures Procedure Name Priority Date/Time Associated Diagnosis Comments POC HEMOGLOBIN A1C Routine 06/26/2024 1: 16 PM CORONER FORENSIC TECHNICIAN Type 2 diabetes mellitus with stage 3a chronic kidney disease, with long-term current use of insulin ([facility]) HM DIABETES EYE EXAM Routine 05/15/2024 9:06 AM CORONER FORENSIC TECHNICIAN MICROALBUMIN/CREATIN INE RATIO, RANDOM UR Routine 08/22/2023 10:57 AM CDT LIPID RFLX Routine 08/22/2023 10:57 AM CDT Type 2 diabetes mellitus without complication, with long-term current use of insulin ([facility]) from Last 3 Months or Most Recently Relevant to Health Maintenance Results * (ABNORMAL) POC HEMOGLOBIN A1C (06/26/2024 1:16 PM CORONER FORENSIC TECHNICIAN) Pathologist [facility] HGB A1C POC 7.8(A) 4.0 - 6.0 % [facility] KIT LOT NUMBER POC [id number] [facility] KIT EXP DATE POC [id number] [facility] Blood, capillary 06/26/2024 1:16 PM CORONER FORENSIC TECHNICIAN us Naye Scott MD POINT OF CARE TESTING Final Resu lt [facility] CLIA# [id number] [address] [place] [id number] * (ABNORMAL) HM DIABETES EYE EXAM (05/15/2024 9:06 AM CORONER FORENSIC TECHNICIAN) Pathologist [facility] DIABETIC RETINOPATHY SCREENING [facility] us Abstract Provider HEALTH MAINTENANCE Edited Resu lt - Final [facility] CLIA# [id number] [place] [address] * (ABNORMAL) LIPID RFLX (08/22/2023 10:57 AM CDT) [facility] CHOLESTEROL 161 <200 mg/dL Mihaela extraTKTCj Soni HDL 38(L) > OR = 40 mg/dL Mihaela extraTKT-Jaimie Soni TRIGLYCERIDE 119 <150 mg/dL Mihaela extraTKT-Jaimie Soni LDL CALCULATED 101(H) mg/dL (calc) [facility] Comment: Reference range: <100 Desirable range <100 mg/dL for primary prevention; <70 mg/dL for patients with CHD or diabetic patients with > or = 2 CHD risk factors. LDL-C is now calculated using the Danny calculation, which is a validated novel method providing better accuracy than the Friedewald equation in the estimation of LDL-C. Milton SS et al. BARAK. 2013;310(19): 3063-3465 (http://education.[employer]/faq/MBA190) CHOL/HDL RATIO 4.2 <5.0 (calc) Mihaela Soni TOTAL NON-HDL CHOL(LDL+VLDL) 123 <130 mg/dL (calc) [facility] Comment: For patients with diabetes plus 1 major ASCVD risk factor, treating to a non-HDL-C goal of <100 mg/dL (LDL-C of <70 mg/dL) is considered a therapeutic option. Test Performed at: [facility] [address] [place] [id number] Santos Duque Blood 08/22/2023 10:5 7 AM CDT 08/22/2023 10:57 AM CDT us Naye Scott MD CHEMISTRY ORDERABLES Final Resul t [facility] [phone] [place] [address] [place] [address] * (ABNORMAL) MICROALBUMIN/CREATININE RATIO, RANDOM UR (08/22/2023 10:57 AM CDT) Creatinine, Urine 101 20 - 320 mg/dL [facility] MICROALBUMIN, URINE 6.6 See Note: mg/dL [facility] Comment: Reference Range: Reference Range Not established MICROALBUMIN/CREAT RATIO, UR 65(H) <30 mg/g creat [facility] [facility] Comment: The ADA defines abnormalities in albumin excretion as follows: Albuminuria Category Result (mg/g creatinine) Normal to Mildly increased <30 Moderately increased 30-299 Severely increased > OR = 300 The ADA recommends that at least two of three specimens collected within a 3-6 month period be abnormal before considering a patient to be within a diagnostic category. Test Performed at: [email or web address] [id number] [id number] Santos Duque MD 08/22/2023 10:5 7 AM CDT 08/22/2023 10:57 AM CDT Naye Scott MD URINE ORDERABLES Final Result Performing Organization Address City/State/ZIP [facility] Phone Number [facility] [phone] [facility] [address] [id number] from Last 3 Months or Most Recently Relevant to Health Maintenance Insurance MEDICARE PART A AND B [facility] Medicare Part D Advance Directives For more information, please contact: [phone] * Full Code (Latest Code Status on File) Date Activated Date Inactivated Comments 11/14/2013 6:38 AM 11/14/2013 10:12 AM * Full Code Date Activated Date Inactivated Comments 10/04/2009 11:33 AM 10/05/2009 2:32 AM Care Teams Curing Oven Attendant Relationship Specialty [place] [id number] [place] [address] PCP - General Internal Medicine 09/15/11
--- OUTSIDE RECORDS SUMMARY | 2024-09-30 15:54 | XMS_ITS | Encounter Summary ---
Author Organization [facility] Address 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 Role Phone Naye Scott MD Primary Care Provider [phone] Encounter Details Date Type Department Care Team (Late Contact Info) Description 12/23/2007 Outpatient Historical [facility] [place], Authorized P NO ADDRESS ON FILE Riya Perdue MD [address] [place] [address] Moni Fuentes MD [address] [place] [phone] Jaime Iglesias MD NO ADDRESS ON FILE Cellulitis and Abscess of Unspecified Site Social History Tobacco Use Types Packs/Day Years Used Date Smoking Tobacco: Never Alcohol Use Standard Drinks/Week Comments Not Asked 0 (1 standard drink = 0.6 oz pur e alcohol) Sex and Gender Information Value Date Recorded Sex Assigned at Not on file 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 Internal Medicine [id number] [place] [address] [place] [address] [place] [address] documented as of this encounter Procedures Procedure Name Priority Date/Time Associated Diagnosis Comments POC GLUCOSE Routine 12/28/2007 12:42 PM CDT POC GLUCOSE Routine 12/28/2007 7:02 AM CDT C-REACTIVE PROTEIN Routine 12/28/2007 4: 35 AM CDT BASIC METABOLIC PANEL Routine 12/28/2007 4:35 AM CDT POC GLUCOSE Routine 12/27/2007 8:35 PM CDT POC GLUCOSE Routine 12/27/2007 4:48 PM CDT POC GLUCOSE Routine 12/27/2007 11:46 AM CDT VANCOMYCIN LEVEL TROUGH Timed Study 12/27/2007 8:20 AM CDT POC GLUCOSE Routine 12/27/2007 6:16 AM CDT CBC WITH DIFFERENTIAL Routine 12/27/2007 4:40 AM CDT C-REACTIVE PROTEIN Routine 12/27/2007 4: 40 AM CDT BASIC METABOLIC PANEL Routine 12/27/2007 4:40 AM CDT POC GLUCOSE Routine 12/26/2007 8:57 PM CDT POC GLUCOSE Routine 12/26/2007 5:02 PM CDT POC GLUCOSE Routine 12/26/2007 12:27 PM CDT VANCOMYCIN LEVEL TROUGH Timed Study 12/26/2007 8:00 AM CDT POC GLUCOSE Routine 12/26/2007 6:46 AM CDT POC GLUCOSE Routine 12/25/2007 9:17 PM CDT WOUND CULTURE WITH GRAM STAIN Routine 12/25/2007 6:17 PM CDT MRSA CULTURE Routine 12/25/2007 5:37 PM CDT POC GLUCOSE Routine 12/25/2007 4:51 PM CDT POC GLUCOSE Routine 12/25/2007 11:53 AM CDT POC GLUCOSE Routine 12/25/2007 6:37 AM CDT C-REACTIVE PROTEIN Routine 12/25/2007 4: 53 AM CDT BASIC METABOLIC PANEL Routine 12/25/2007 4:53 AM CDT MRI ELBOW W WO CONTRAST RIGHT Routine 12/24/2007 9:31 PM CDT POC GLUCOSE Routine 12/24/2007 8:09 PM CDT POC GLUCOSE Routine 12/24/2007 5:08 PM CDT POC GLUCOSE Routine 12/24/2007 11:53 AM CDT POC GLUCOSE Routine 12/24/2007 6:28 AM CDT C-REACTIVE PROTEIN Routine 12/24/2007 6: 26 AM CDT MAGNESIUM LEVEL Routine 12/24/2007 6:26 AM CDT COMPREHENSIVE METABOLIC PANEL Routine 12/24/2007 6:26 AM CDT POC GLUCOSE Routine 12/23/2007 9:26 PM CDT SODIUM, RANDOM URINE Stat 12/23/2007 6:48 PM CDT POTASSIUM, RANDOM URINE Stat 12/23/2007 6:48 PM CDT CHLORIDE, RANDOM URINE Stat 12/23/2007 6:48 PM CDT URINALYSIS W/REFLEX MICROSCOPIC Stat 12/23/2007 6:48 PM CDT CBC WITH DIFFERENTIAL Stat 12/23/2007 2:48 PM CDT BLOOD CULTURE Stat 12/23/2007 2:48 PM CDT BLOOD CULTURE Stat 12/23/2007 2:48 PM CDT COMPREHENSIVE METABOLIC PANEL Stat 12/23/2007 2:48 PM CDT documented in this encounter Results * (ABNORMAL) POC GLUCOSE (12/28/2007 12:42 PM CDT) GLUCOSE POC 140(H) 65 - 99 mg/dL [facility] Venous blood specimen (specimen) 12/28/2007 12:42 PM CDT 12/28/2007 12:42 PM CDT us Moni Fuentes MD POINT OF CARE TESTING Final Re sult Performing Organization Address City/[facility]/ZIP Co de Phone Number [facility] CLIA# [id number] [address] [place] [address] * (ABNORMAL) POC GLUCOSE (12/28/2007 7:02 AM CDT) GLUCOSE POC 144(H) 65 - 99 mg/dL [facility] Venous blood specimen (specimen) 12/28/2007 7:02 AM CDT 12/28/2007 7:02 AM CDT us Moni Fuentes MD POINT OF CARE TESTING Final Re sult [facility] CLIA# [id number] [address] [place] [address] * (ABNORMAL) BASIC METABOLIC PANEL (12/28/2007 4:35 AM CDT) CREATININE 0.98 0.67 - 1.17 mg/dL [facility] POTASSIUM 3.6 3.5 - 4.9 mmol/L [facility] GLUCOSE 116(H) 65 - 99 mg/dL [facility] BUN 10 6 - 20 mg/dL [facility] CHLORIDE 102 96 - 108 mmol/L [facility] CO2 25 22 - 30 mmol/L [facility] CALCIUM 9.2 8.6 - 10.2 mg/dL [facility] Comment:Note new reference r bahman effective 12/26/07 SODIUM 138 135 - 145 mmol/L [facility] GFR, >60 >=60 mL/min/1. 7 sq meter [facility] GFR >60 >=60 mL/min/1. 7 sq meter [facility] Comment: Modification of Diet in Renal Disease (MDRD) study formula. Estimated GFR rate interpretative information for both Americans and non- Americans is available on the [facility] Intranet at: [email or web address] Select: Lab Policies and Procedures Select: Reference Ranges - GFR Blood specimen (specimen) 12/28/2007 4:35 AM CDT 12/28/2007 5:51 AM CDT us Moni Fuentes MD CHEMISTRY ORDERABLES Edited [facility] CLIA# [id number] [address] [place] [address] * (ABNORMAL) C-REACTIVE PROTEIN (12/28/2007 4:35 AM CDT) CRP 2.5(H) 0.0 - 0.8 mg/dL [facility] Blood specimen (specimen) 12/28/2007 4:35 AM CDT 12/28/2007 5:51 AM CDT Moni Fuentes MD CHEMISTRY ORDERABLES Final Res ult Performing Organization Address [facility] Co de Phone Number [facility] CLIA# [id number] [address] [place] [address] * (ABNORMAL) POC GLUCOSE (12/27/2007 8:35 PM CDT) GLUCOSE POC 245(H) 65 - 99 mg/dL [facility] Venous blood specimen (specimen) 12/27/2007 8:35 PM CDT 12/27/2007 8:35 PM CDT us Moni Fuentes MD POINT OF CARE TESTING Final Re sult Performing Organization Address [facility] Co de Phone Number [facility] CLIA# [id number] [address] [place] [address] * (ABNORMAL) POC GLUCOSE (12/27/2007 4:48 PM CDT) GLUCOSE POC 238(H) 65 - 99 mg/dL [facility] Venous blood specimen (specimen) 12/27/2007 4:48 PM CDT 12/27/2007 4:48 PM CDT us Moni Fuentes MD POINT OF CARE TESTING Final Re sult Performing Organization Address [facility] Co de Phone Number [facility] CLIA# [id number] [address] [place] [address] * (ABNORMAL) POC GLUCOSE (12/27/2007 11:46 AM CDT) GLUCOSE POC 140(H) 65 - 99 mg/dL [facility] Venous blood specimen (specimen) 12/27/2007 11:46 AM CDT 12/27/2007 11:46 AM CDT us Moni Fuentes MD POINT OF CARE TESTING Final Re sult Performing Organization Address [facility] Co de Phone Number [facility] CLIA# [id number] [address] [address] * VANCOMYCIN LEVEL TROUGH (12/27/2007 8:20 AM CDT) VANCOMYCIN, TROUGH 8.6 5.0 - 15.0 ug/mL [facility] Comment:Vancomycin Trough To xic Level= >15.0 ug/mL Blood specimen (specimen) 12/27/2007 8:20 AM CDT 12/27/2007 8:36 AM CDT us Kevin Barrow MD CHEMISTRY ORDERABLES Heather l Result Performing Organization Address [facility] Co de Phone Number [facility] CLIA# [id number] [address] [place] [address] * (ABNORMAL) POC GLUCOSE (12/27/2007 6:16 AM CDT) GLUCOSE POC 158(H) 65 - 99 mg/dL [facility] Venous blood specimen (specimen) 12/27/2007 6:16 AM CDT 12/27/2007 6:16 AM CDT us Moni Fuentes MD POINT OF CARE TESTING Final Re sult Performing Organization Address [facility] Co de Phone Number [facility] CLIA# [id number] [address] [place] [address] * (ABNORMAL) C-REACTIVE PROTEIN (12/27/2007 4:40 AM CDT) CRP 4.5(H) 0.0 - 0.8 mg/dL [facility] Blood specimen (specimen) 12/27/2007 4:40 AM CDT 12/27/2007 7:13 AM CDT us Moni Fuentes MD CHEMISTRY ORDERABLES Final Res ult Performing Organization Address City/[facility]/ZIP Co de Phone Number [facility] CLIA# [id number] [address] [place] [address] * (ABNORMAL) BASIC METABOLIC PANEL (12/27/2007 4:40 AM CDT) CO2 26 22 - 30 mmol/L [facility] CREATININE 0.92 0.67 - 1.17 mg/dL [facility] POTASSIUM 3.4(L) 3.5 - 4.9 mmol/L [facility] BUN 10 6 - 20 mg/dL [facility] CHLORIDE 100 96 - 108 mmol/L [facility] GLUCOSE 142(H) 65 - 99 mg/dL [facility] SODIUM 137 135 - 145 mmol/L [facility] CALCIUM 8.7 8.6 - 10.2 mg/dL [facility] Comment:Note new reference shona ruggiero effective 12/26/07 GFR, >60 >=60 mL/min/1. 7 sq meter [facility] GFR >60 >=60 mL/min/1. 7 sq meter [facility] Comment: Modification of Diet in Renal Disease (MDRD) study formula. Estimated GFR rate interpretative information for both Americans and non- Americans is available on the [facility] Intranet at: [email or web address] Select: Lab Policies and Procedures Select: Reference Ranges - GFR Blood specimen (specimen) 12/27/2007 4:40 AM CDT 12/27/2007 7:13 AM CDT Moni Fuentes MD CHEMISTRY ORDERABLES Edited Performing Organization Address City/[facility]/ZIP Co de Phone Number [facility] CLIA# [id number] [address] [place] [address] * (ABNORMAL) CBC WITH DIFFERENTIAL (12/27/2007 4:40 AM CDT) HEMOGLOBIN 11.9(L) 13.6 - 16.5 g/dL [facility] RDW 13.4 11.5 - 14.5 % [facility] WBC 6.2 4.0 - 9.8 K/uL [facility] MCH 28.1 27.2 - 32.6 pg [facility] MPV 11.5 9.3 - 12.4 fL [facility] HEMATOCRIT 35.8(L) 40.0 - 48.0 % [facility] RDW-STDEV 40.5 37.1 - 48.7 fL [facility] RBC 4.24(L) 4.50 - 5.40 M/uL [facility] MCHC 33.2 31.5 - 35.5 % [facility] MCV 84.4 82.0 - 99.0 fL [facility] PLATELETS 178 140 - 350 K/uL [facility] EOSINOPHILS 5 0 - 7 % [facility] EOSINOPHIL ABSOLUTE 0.30 0.00 - 0.70 K/uL [facility] LYMPHOCYTES 21 16 - 45 % [facility] LYMPHOCYTE ABSOLUTE 1.28 0.70 - 4.50 K/uL [facility] BASOPHILS 0 0 - 2 % [facility] BASOPHILS ABSOLUTE 0.02 0.00 - 0.20 K/uL [facility] MONOCYTES 9 3 - 13 % [facility] MONOCYTE ABSOLUTE 0.57 0.10 - 1.30 K/uL [facility] NEUTROPHILS 65 45 - 70 % [facility] NEUTROPHIL ABSOLUTE 4.05 1.90 - 7.00 K/uL [facility] Blood specimen (specimen) 12/27/2007 4:40 AM CDT 12/27/2007 7:13 AM CDT Moni Fuentes MD HEMATOLOGY ORDERABLES Edited Performing Organization Address City/[facility] Co de Phone Number INTERFACE SYSTEM Refer to clinic/hospital department [facility] CLIA# [id number] [address] [place] [address] * (ABNORMAL) POC GLUCOSE (12/26/2007 8:57 PM CDT) GLUCOSE POC 209(H) 65 - 99 mg/dL [facility] Venous blood specimen (specimen) 12/26/2007 8:57 PM CDT 12/26/2007 8:57 PM CDT us Moni Fuentes MD POINT OF CARE TESTING Final Re sult Performing Organization Address [facility] Co de Phone Number [facility] CLIA# [id number] [address] [place] [address] * (ABNORMAL) POC GLUCOSE (12/26/2007 5:02 PM CDT) GLUCOSE POC 122(H) 65 - 99 mg/dL [facility] Venous blood specimen (specimen) 12/26/2007 5:02 PM CDT 12/26/2007 5:02 PM CDT us Moni Fuentes MD POINT OF CARE TESTING Final Re sult Performing Organization Address City/[facility] Co de Phone Number [facility] CLIA# [id number] [address] [place] [address] * (ABNORMAL) POC GLUCOSE (12/26/2007 12:27 PM CDT) GLUCOSE POC 188(H) 65 - 99 mg/dL [facility] Venous blood specimen (specimen) 12/26/2007 12:27 PM CDT 12/26/2007 12:27 PM CDT us Moni Fuentes MD POINT OF CARE TESTING Final Re sult Performing Organization Address [facility]/ZIP Co de Phone Number [facility] CLIA# [id number] [address] [place] [address] * VANCOMYCIN LEVEL TROUGH (12/26/2007 8:00 AM CDT) VANCOMYCIN, TROUGH 5.3 5.0 - 15.0 ug/mL [facility] Comment:Vancomycin Trough To xic Level= >15.0 ug/mL Blood specimen (specimen) 12/26/2007 8:00 AM CDT 12/26/2007 9:26 AM CDT us González Cruz MD CHEMISTRY ORDERABLES Final Re sult Performing Organization Address [facility] Co de Phone Number [facility] CLIA# [id number] [address] [place] [address] * (ABNORMAL) POC GLUCOSE (12/26/2007 6:46 AM CDT) GLUCOSE POC 194(H) 65 - 99 mg/dL [facility] Venous blood specimen (specimen) 12/26/2007 6:46 AM CDT 12/26/2007 6:46 AM CDT us Moni Fuentes MD POINT OF CARE TESTING Final Re sult Performing Organization Address City/[facility] Co de Phone Number [facility] CLIA# [id number] [address] [place] [address] * (ABNORMAL) POC GLUCOSE (12/25/2007 9:17 PM CDT) GLUCOSE POC 236(H) 65 - 99 mg/dL [facility] Venous blood specimen (specimen) 12/25/2007 9:17 PM CDT 12/25/2007 9:17 PM CDT us Moni Fuentes MD POINT OF CARE TESTING Final Re sult [facility] CLIA# [id number] [address] [place] [address] * WOUND CULTURE WITH GRAM STAIN (12/25/2007 6:17 PM CDT) GRAM STAIN Rare Gram Positive Cocci Few WBC's seen [facility] PRELIMINARY REPORT Light growth Staphylococcus aureus [facility] SUSCEPTIBILITY PERFORMED ON STAPHYLOCOCCUS AUREUS [facility] FINAL REPORT Light growth Staphylococcus aureus [facility] Specimen from abscess (specimen) (Elbow, right) 12/25/2007 6:17 PM CDT 12/25/2007 6:17 PM CDT Narrative Organism Antibiotic Method Susceptibility Staphylococcus aureus BETA LACTAMASE TAMIKA MCG/ML POSITIVE Staphylococcus aureus OXACILLIN (Nafcillin) TAMIKA MCG/ML 0.5: Susceptible Staphylococcus aureus ERYTHROMYCIN TAMIKA MCG/ML <=0.5: Susceptible Staphylococcus aureus CLINDAMYCIN TAMIKA MCG/ML <=0.5: Susceptible Staphylococcus aureus VANCOMYCIN TAMIKA MCG/ML <=0.5: Susceptible Staphylococcus aureus GENTAMICIN TAMIKA MCG/ML <=2: Susceptible Staphylococcus aureus TRIMETHOPRIM/ SULFAMETHOXAZOLE M IC MCG/ML <=10: Susceptible us Moni Fuentes MD MICROBIOLOGY - GENERAL ORDERAB LES Final Result [facility] CLIA# [id number] [address] [place] [address] * MRSA CULTURE (12/25/2007 5:37 PM CDT) PRELIMINARY REPORT Pending [facility] FINAL REPORT No methicillin resistant Staphylococcus aureus isolated. [facility] Nares 12/25/2007 5:37 PM CDT 12/25/2007 6:16 PM CDT Moni Fuentes MD MICROBIOLOGY - GENERAL ORDERAB LES Final Result Performing Organization Address City/[facility]/ZIP Co de Phone Number [facility] CLIA# [id number] [address] [place] [address] * (ABNORMAL) POC GLUCOSE (12/25/2007 4:51 PM CDT) GLUCOSE POC 242(H) 65 - 99 mg/dL [facility] COMMENT, GLU POC Notified RN [facility] Venous blood specimen (specimen) 12/25/2007 4:51 PM CDT 12/25/2007 4:51 PM CDT us Moni Fuentes MD POINT OF CARE TESTING Final Re sult Performing Organization Address [facility]/ZIP Co de Phone Number [facility] CLIA# [id number] [address] [place] [address] * (ABNORMAL) POC GLUCOSE (12/25/2007 11:53 AM CDT) COMMENT, GLU POC Notified RN [facility] GLUCOSE POC 182(H) 65 - 99 mg/dL [facility] Venous blood specimen (specimen) 12/25/2007 11:53 AM CDT 12/25/2007 11:53 AM CDT us Moni Fuentes MD POINT OF CARE TESTING Final Re sult [facility] CLIA# [id number] [address] [place] [address] * (ABNORMAL) POC GLUCOSE (12/25/2007 6:37 AM CDT) [facility] GLUCOSE POC 155(H) 65 - 99 mg/dL [facility] Venous blood specimen (specimen) 12/25/2007 6:37 AM CDT 12/25/2007 6:37 AM CDT Moni Fuentes MD POINT OF CARE TESTING Final Re sult Performing Organization Address [facility] Co de Phone Number [facility] CLIA# [id number] [address] [place] [address] * (ABNORMAL) C-REACTIVE PROTEIN (12/25/2007 4:53 AM CDT) [facility] CRP 9.1(H) 0.0 - 0.8 mg/dL [facility] Blood specimen (specimen) 12/25/2007 4:53 AM CDT 12/25/2007 5:31 AM CDT Moni Fuentes MD CHEMISTRY ORDERABLES Final Res ult Performing Organization Address [facility] Co de Phone Number [facility] CLIA# [id number] [address] [place] [address] * (ABNORMAL) BASIC METABOLIC PANEL (12/25/2007 4:53 AM CDT) [facility] SODIUM 136 135 - 145 mmol/L [facility] CALCIUM 8.2(L) 8.4 - 10.2 mg/dL [facility] CO2 27 22 - 30 mmol/L [facility] CREATININE 0.98 0.67 - 1.17 mg/dL [facility] POTASSIUM 3.4(L) 3.5 - 4.9 mmol/L [facility] BUN 13 6 - 20 mg/dL [facility] CHLORIDE 101 96 - 108 mmol/L [facility] GLUCOSE 192(H) 65 - 99 mg/dL [facility] GFR, >60 >=60 mL/min/1. 7 sq meter [facility] GFR >60 >=60 mL/min/1. 7 sq meter [facility] Comment: Modification of Diet in Renal Disease (MDRD) study formula. Estimated GFR rate interpretative information for both Americans and non- Americans is available on the [facility] Intranet at: [email or web address] Select: Lab Policies and Procedures Select: Reference Ranges - GFR Blood specimen (specimen) 12/25/2007 4:53 AM CDT 12/25/2007 5:31 AM CDT Moni Fuentes MD CHEMISTRY ORDERABLES Edited [facility] CLIA# [id number] [address] [place] [address] * MRI ELBOW W WO CONTRAST RIGHT (12/24/2007 9:31 PM CDT) Anatomical Region Laterality Modality Upper Extremity Other 12/24/2007 9:31 PM CDT Narrative 12/25/2007 8:09 AM CDT [facility] [address] [place], [place] [address] Admit Date: 12/23/2007 TA GUZMAN Sex: M Admit Prov: RIYA PERDUE Date: 1955 Primary Care Prov: ABDIAS PETERS Hernandez CMRN: [id number] Room: [address] [place] [address] SSN: [id number] IMAGING SERVICES Ordering Prov: N/A Accession Number: [id number] Interpretation MR right elbow with and without contrast 12/24/2007. History: Cellulitis. Rule out osteomyelitis. Technique: Multisequence and multiplanar MRI of right elbow was performed with and without IV gadolinium Findings: Diffuse subcutaneous soft tissue edema is seen dorsum to the right forearm extending to the right elbow. There is small soft tissue abscess dorsal to the proximal ulna measuring about 0.9 x 0.6 x 3.4 cm in AP, transverse and craniocaudal dimensions. There is also focal fluid collection dorsal to the olecranon, suggestive of bursitis. No marrow edema or marrow replacement is seen. No cortical disruption is visualized. There is tiny amount of fluid in the joint which is probably physiologic or reactive. No abnormal enhancement in the joint is seen. The musculature is unremarkable. No fluid is seen in the deep fascia. Tendons and ligaments are intact. Impression: 1. Diffuse cellulitis at dorsum of right forearm extending to the right elbow. 2. There is small abscess dorsal to the proximal ulna. There is small amount of fluid dorsal to the olecranon, suggestive of bursitis. 3. A tiny amount of fluid in the joint of right elbow which is probably physiologic or reactive. . Dictated by: BETHANY RASMUSSEN 12/25/2007 07:58 Electronically signed by: BETHANY RASMUSSEN 12/25/2007 08:07 Procedure Note Bethany Rasmussen - 12/25/[address] [address] Admit Date: 12/23/2007 THOMAS TA H Sex: M Admit Prov: RIYA PERDUE Date:1955 Primary Care Prov: ABDIAS PETERS Hernandez CMRN: [id number] Room: [address] [place] [address] SSN: [id number] [facility] Ordering Prov: N/A Interpretation MR right elbow with and without contrast 12/24/2007. History: Cellulitis. Rule out osteomyelitis. Technique: Multisequence and multiplanar MRI of right elbow wasperformed with and without IV gadolinium Findings: Diffuse subcutaneous soft tissue edema is seen dorsum tothe right forearm extending to the right elbow. There is small softtissue abscess dorsal to the proximal ulna measuring about 0.9 x 0.6 x 3.4cm in AP, transverse and craniocaudal dimensions. There is also focalfluid collection dorsal to the olecranon, suggestive of bursitis. Nomarrow edema or marrow replacement is seen. No cortical disruption isvisualized. There is tiny amount of fluid in the joint which is probablyphysiologic or reactive. No abnormal enhancement in the joint is seen. Themusculature is unremarkable. No fluid is seen in the deep fascia. Tendons andligaments are intact. Impression: 1. Diffuse cellulitis at dorsum of right forearm extending to theright elbow. 2. There is small abscess dorsal to the proximal ulna. There issmall amount of fluid dorsal to the olecranon, suggestive of bursitis. 3. A tiny amount of fluid in the joint of right elbow which isprobably physiologic or reactive. . Dictated by: BETHANY RASMUSSEN 12/25/2007 07:58 Electronically signed by: BETHANY RASMUSSEN 12/25/2007 08:07 Moni Fuentes MD MR ORDERABLES Final Result * (ABNORMAL) POC GLUCOSE (12/24/2007 8:09 PM CDT) GLUCOSE POC 217(H) 65 - 99 mg/dL [facility] Venous blood specimen (specimen) 12/24/2007 8:09 PM CDT 12/24/2007 8:09 PM CDT us Moni Fuentes MD POINT OF CARE TESTING Final Re sult [facility] CLIA# [id number] [address] [place] [address] * (ABNORMAL) POC GLUCOSE (12/24/2007 5:08 PM CDT) COMMENT, GLU POC Notified RN [facility] GLUCOSE POC 207(H) 65 - 99 mg/dL [facility] Venous blood specimen (specimen) 12/24/2007 5:08 PM CDT 12/24/2007 5:08 PM CDT Moni Fuentes MD POINT OF CARE TESTING Final Re sult Performing Organization Address [facility] Co de Phone Number [facility] CLIA# [id number] [address] [place] [address] * (ABNORMAL) POC GLUCOSE (12/24/2007 11:53 AM CDT) GLUCOSE POC 233(H) 65 - 99 mg/dL [facility] COMMENT, GLU POC Notified RN [facility] Venous blood specimen (specimen) 12/24/2007 11:53 AM CDT 12/24/2007 11:53 AM CDT us Moni Fuentes MD POINT OF CARE TESTING Final Re sult Performing Organization Address [facility] de Phone Number [facility] CLIA# [id number] [address] [place] [address] * (ABNORMAL) POC GLUCOSE (12/24/2007 6:28 AM CDT) GLUCOSE POC 197(H) 65 - 99 mg/dL [facility] COMMENT, GLU POC Notified RN [facility] Venous blood specimen (specimen) 12/24/2007 6:28 AM CDT 12/24/2007 6:28 AM CDT Riya Perdue MD POINT OF CARE TESTING Fi nal Result Performing Organization Address [facility] Co de Phone Number [facility] CLIA# [id number] [address] [place] [address] * MAGNESIUM LEVEL (12/24/2007 6:26 AM CDT) MAGNESIUM 2.1 1.5 - 2.5 mg/dL [facility] Blood specimen (specimen) 12/24/2007 6:26 AM CDT 12/24/2007 6:33 AM CDT us Moni Fuentes MD CHEMISTRY ORDERABLES Final Res ult [facility] CLIA# [id number] [address] [place] [address] * (ABNORMAL) COMPREHENSIVE METABOLIC PANEL (12/24/2007 6:26 AM CDT) CREATININE 1.06 0.67 - 1.17 mg/dL [facility] ALT 14 0 - 41 U/L [facility] SODIUM 136 135 - 145 mmol/L [facility] ALKALINE PHOSPHATASE 59 40 - 129 U/L [facility] CO2 25 22 - 30 mmol/L [facility] BILIRUBIN TOTAL 0.5 0.2 - 1.0 mg/dL [facility] POTASSIUM 3.3(L) 3.5 - 4.9 mmol/L [facility] TOTAL PROTEIN 6.8 6.3 - 8.6 g/dL [facility] GLUCOSE 202(H) 65 - 99 mg/dL [facility] AST 13 12 - 38 U/L [facility] BUN 15 6 - 20 mg/dL [facility] CALCIUM 8.4 8.4 - 10.2 mg/dL [facility] ALBUMIN 3.9 3.4 - 4.8 g/dL [facility] CHLORIDE 98 96 - 108 mmol/L [facility] GFR, >60 >=60 mL/min/1. 7 sq meter [facility] GFR >60 >=60 mL/min/1. 7 sq meter [facility] Comment: Modification of Diet in Renal Disease (MDRD) study formula. Estimated GFR rate interpretative information for both Americans and non- Americans is available on the [facility] Intranet at: [email or web address] Select: Lab Policies and Procedures Select: Reference Ranges - GFR Blood specimen (specimen) 12/24/2007 6:26 AM CDT 12/24/2007 6:33 AM CDT Moni Fuentes MD CHEMISTRY ORDERABLES Edited Performing Organization Address [facility] Co de Phone Number [facility] CLIA# [id number] [address] [place] [address] * (ABNORMAL) C-REACTIVE PROTEIN (12/24/2007 6:26 AM CDT) CRP 12.6(H) 0.0 - 0.8 mg/dL [facility] Blood specimen (specimen) 12/24/2007 6:26 AM CDT 12/24/2007 6:33 AM CDT Moni Fuentes MD CHEMISTRY ORDERABLES Final Res ult Performing Organization Address [facility] de Phone Number [facility] CLIA# [id number] [address] [place] [address] * (ABNORMAL) POC GLUCOSE (12/23/2007 9:26 PM CDT) GLUCOSE POC 302(H) 65 - 99 mg/dL [facility] COMMENT, GLU POC Notified RN [facility] Venous blood specimen (specimen) 12/23/2007 9:26 PM CDT 12/23/2007 9:26 PM CDT us Riya Perdue MD POINT OF CARE TESTING Fi nal Result Performing Organization Address [facility] Co de Phone Number [facility] CLIA# [id number] [address] [place] [address] * (ABNORMAL) URINALYSIS (12/23/2007 6:48 PM CDT) BLOOD UA Negative Negative [facility] COLOR UA Pale Yellow [facility] NITRITE UA Negative Negative [facility] UROBILINOGEN UA <1 <=1 mg/dL [facility] PH UA 5.0 5.0 - 8.0 [facility] WBC UA <1 0 - 3 /HPF [facility] KETONES UA Negative Negative [facility] CLARITY UA Clear Clear [facility] BILIRUBIN UA Negative Negative [facility] PROTEIN UA Negative Negative [facility] LEUKOCYTE ESTERASE UA Negative Negative [facility] RBC UA <1 0 - 3 /HPF [facility] SPECIFIC GRAVITY UA 1.012 1.001 - 1.035 [facility] GLUCOSE UA 4+(A) Negative [facility] Urine specimen (specimen) 12/23/2007 6:48 PM CDT 12/23/2007 9:45 PM CDT Moni Fuentes MD URINE ORDERABLES Final Result Performing Organization Address City/State/[facility] Co de Phone Number [facility] CLIA# [id number] [address] [place] [address] * CHLORIDE, RANDOM URINE (12/23/2007 6:48 PM CDT) CHLORIDE, URINE 44 mmol/L [facility] Comment:No Reference Range E stablished for Random Urine Chloride Urine specimen (specimen) 12/23/2007 6:48 PM CDT 12/23/2007 9:45 PM CDT Moni Fuentes MD URINE ORDERABLES Final Result Performing Organization Address [facility] Co de Phone Number [facility] CLIA# [id number] [address] [place] [address] * POTASSIUM, RANDOM URINE (12/23/2007 6:48 PM CDT) POTASSIUM, URINE 18.7 mmol/L [facility] Comment:No Reference Range E stablished for Random Urine Potassium Urine specimen (specimen) 12/23/2007 6:48 PM CDT 12/23/2007 9:45 PM CDT Moni Fuentes MD URINE ORDERABLES Final Result Performing Organization Address [facility] Co de Phone Number [facility] CLIA# [id number] [address] [place] [address] * SODIUM, RANDOM URINE (12/23/2007 6:48 PM CDT) SODIUM, URINE 51 mmol/L [facility] Comment:No Reference Range E stablished for Random Urine Sodium. Urine specimen (specimen) 12/23/2007 6:48 PM CDT 12/23/2007 9:45 PM CDT Moni Fuentes MD URINE ORDERABLES Final Result Performing Organization Address [facility] Co de Phone Number [facility] CLIA# [id number] [address] [place] [address] * (ABNORMAL) COMPREHENSIVE METABOLIC PANEL (12/23/2007 2:48 PM CDT) GLUCOSE 257(H) 65 - 99 mg/dL [facility] AST 15 12 - 38 U/L [facility] BUN 14 6 - 20 mg/dL [facility] CALCIUM 8.6 8.4 - 10.2 mg/dL [facility] CHLORIDE 97 96 - 108 mmol/L [facility] ALBUMIN 4.3 3.4 - 4.8 g/dL [facility] CREATININE 1.17 0.67 - 1.17 mg/dL [facility] SODIUM 134(L) 135 - 145 mmol/L [facility] ALT 19 0 - 41 U/L [facility] ALKALINE PHOSPHATASE 65 40 - 129 U/L [facility] BILIRUBIN TOTAL 0.5 0.2 - 1.0 mg/dL [facility] CO2 24 22 - 30 mmol/L [facility] TOTAL PROTEIN 7.5 6.3 - 8.6 g/dL [facility] POTASSIUM 3.3(L) 3.5 - 4.9 mmol/L [facility] GFR, >60 >=60 mL/min/1. 7 sq meter [facility] GFR >60 >=60 mL/min/1. 7 sq meter [facility] Comment: Modification of Diet in Renal Disease (MDRD) study formula. Estimated GFR rate interpretative information for both Americans and non- Americans is available on the [facility] Intranet at: [email or web address] Select: Lab Policies and Procedures Select: Reference Ranges - GFR Blood specimen (specimen) 12/23/2007 2:48 PM CDT 12/23/2007 2:55 PM CDT us Piero Amado MD CHEMISTRY ORDERABLES Edited [facility] CLIA# [id number] [address] [place] [address] * (ABNORMAL) CBC WITH DIFFERENTIAL (12/23/2007 2:48 PM CDT) HEMOGLOBIN 13.4(L) 13.6 - 16.5 g/dL [facility] MCHC 33.9 31.5 - 35.5 % [facility] WBC 11.0(H) 4.0 - 9.8 K/uL [facility] MCH 28.6 27.2 - 32.6 pg [facility] HEMATOCRIT 39.5(L) 40.0 - 48.0 % [facility] PLATELETS 187 140 - 350 K/uL [facility] RBC 4.69 4.50 - 5.40 M/uL [facility] MPV 11.2 9.3 - 12.4 fL [facility] MCV 84.2 82.0 - 99.0 fL [facility] RDW 13.8 11.5 - 14.5 % [facility] RDW-STDEV 42.2 37.1 - 48.7 fL [facility] MONOCYTES 9 3 - 13 % [facility] MONOCYTE ABSOLUTE 0.94 0.10 - 1.30 K/uL [facility] NEUTROPHILS 75(H) 45 - 70 % [facility] NEUTROPHIL ABSOLUTE 8.25(H) 1.90 - 7.00 K/uL [facility] EOSINOPHILS 1 0 - 7 % [facility] EOSINOPHIL ABSOLUTE 0.14 0.00 - 0.70 K/uL [facility] LYMPHOCYTES 15(L) 16 - 45 % [facility] LYMPHOCYTE ABSOLUTE 1.63 0.70 - 4.50 K/uL [facility] BASOPHILS 0 0 - 2 % [facility] BASOPHILS ABSOLUTE 0.02 0.00 - 0.20 K/uL [facility] Blood specimen (specimen) 12/23/2007 2:48 PM CDT 12/23/2007 2:55 PM CDT Piero Amado MD HEMATOLOGY ORDERABLES Edite d Performing Organization Address [facility]/ZIP Co de Phone Number [facility] CLIA# [id number] [address] [place] [address] * BLOOD CULTURE (12/23/2007 2:48 PM CDT) PRELIMINARY REPORT No growth to date. Culture in progress [facility] FINAL REPORT No growth 5 days [facility] Blood specimen (specimen) 12/23/2007 2:48 PM CDT 12/23/2007 4:29 PM CDT Piero Amado MD MICROBIOLOGY - GENERAL MILLY ABERNATHY Final Result Performing Organization Address [facility] Co de Phone Number [facility] CLIA# [id number] [address] [place] [address] * BLOOD CULTURE (12/23/2007 2:48 PM CDT) PRELIMINARY REPORT No growth to date. Culture in progress [facility] FINAL REPORT No growth 5 days [facility] Blood specimen (specimen) 12/23/2007 2:48 PM CDT 12/23/2007 4:25 PM CDT Piero Amado MD MICROBIOLOGY - GENERAL MILLY ABERNATHY Final Result Performing Organization Address City/[facility]/ZIP Co de Phone Number [facility] CLIA# [id number] [address] [place] [address] documented in this encounter Visit Diagnoses Diagnosis Cellulitis and abscess of unspecified site documented in this encounter Care Teams Beautician Apprentice Relationship Specialty Start Date End Date Naye Scott MD [address] [place] [phone] PCP - General Internal Medicine 09/15/11 documented as of this encounter
--- OUTSIDE RECORDS SUMMARY | 2024-09-30 15:54 | XMS_ITS | Encounter Summary ---
Author Organization [facility] Address [address] [place] [address] Care Team Providers Care Mine Promotor Name Role Phone Naye Scott MD Primary Care Provider [phone] Encounter Details Date Type Department Care Team (Latest Contact Info) Description 09/11/2007 Outpatient Historical [facility] Rui Kilgore MD [address] [place] [address] Unspecified Essential Hypertension Social History Tobacco Use Types Packs/Day Years Used Date Smoking Tobacco: Never Alcohol Use Standard Drinks/Week Comments Not Asked 0 (1 standard drink = 0.6 oz pur e alcohol) Sex and Gender Information Value Date Recorded Sex Assigned at Not on file 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 Gender Identity Not on file Sexual Orientation Not on file documented as of this encounter Plan of Treatment Upcoming Encounters Date Type Department Care Team (Late st Contact Info) Description 12/26/2024 3:00 PM CDT Office Visit [facility] Internal Medicine [address] [address] [place] [address] [place] [address] Pending Results Name Type Priority Associated Diagnoses Date /Time TEST IN QUESTION Lab Routine 09/13/19 08 6:26 AM CDT documented as of this encounter Visit Diagnoses Diagnosis Unspecified essential hypertension documented in this encounter Care Teams Mine Promotor Relationship Specialty Start Date End Date Naye Scott MD [address] [place] [phone] PCP - General Internal Medicine 09/15/11 documented as of this encounter
--- OUTSIDE RECORDS SUMMARY | 2024-09-30 15:54 | XMS_ITS | Encounter Summary ---
Author Organization [facility] Address [address] [place] [address] Care Team Providers Care New Home Sales Consultant Name Role Phone Naye Scott MD Primary Care Provider [phone] Encounter Details Date Type Department Care Team (Latest Contact Info) Description 08/19/1998 Outpatient Historical [facility] Kilgore, Rui Ng MD [address] [place] [address] Type II or unspecified type diabetes mellitus without mention of complication, not stated as uncontrolled (Primary Dx) Social History Tobacco Use Types Packs/Day Years Used Date Smoking Tobacco: Never Assessed Sex and Gender Information Value Date Recorded Sex Assigned at Not on file 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 Gender Identity Not on file Sexual Orientation Not on file documented as of this encounter Plan of Treatment Upcoming Encounters Date Type Department Care Team (Late st Contact Info) Description 12/26/2024 3:00 PM CDT Office Visit [facility] Internal Medicine [address] [address] [place] [address] [place] [address] documented as of this encounter Visit Diagnoses Diagnosis Type II or unspecified type diabetes mellitus without mention of complication, not stated as uncontrolled- Primary documented in this encounter Care Teams New Home Sales Consultant Relationship Specialty Start Date End Date Naye Scott MD [address] [place] [phone] PCP - General Internal Medicine 4/20/12 documented as of this encounter
--- OUTSIDE RECORDS SUMMARY | 2024-09-30 15:54 | XMS_ITS | Encounter Summary ---
Author Organization [facility] Address 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 Gender Identity Not on file Sexual Orientation Not on file documented as of this encounter Plan of Treatment Upcoming Encounters Date Type Department Care Team (Late st Contact Info) Description 12/26/2024 3:00 PM CDT Office Visit [facility] Internal Medicine [address] [address] [place] [address] [place] [address] documented as of this encounter Visit Diagnoses Not on filedocumented in this encounter Care Teams Phototypesetting Equipment Monitor Relationship Specialty Start Date End Date Naye Scott MD [address] [place] [phone] PCP - General Internal Medicine 09/15/11 documented as of this encounter
--- OUTSIDE RECORDS SUMMARY | 2024-09-30 15:54 | XMS_ITS | Encounter Summary ---
Author Organization [facility] Address [address] [place] [address] Care Team Providers Care Edi Specialist Name Role Phone Naye Scott MD Primary Care Provider [phone] Encounter Details Date Type Department Care Team (Late Contact Info) Description 10/11/2004 Outpatient Historical [facility] Support [facility]. (Adt Cardiology[facility]) [address] 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 Gender Identity Not on file Sexual Orientation Not on file documented as of this encounter Plan of Treatment Upcoming Encounters Date Type Department Care Team (Late st Contact Info) Description 12/26/2024 3:00 PM CDT Office Visit [facility] Internal Medicine [address] [phone] [place] [address] [place] [address] documented as of this encounter Visit Diagnoses Not on filedocumented in this encounter Care Teams Edi Specialist Relationship Specialty Start Date End Date Naye Scott MD [address] [place] [phone] PCP - General Internal Medicine 09/15/11 documented as of this encounter
--- OUTSIDE RECORDS SUMMARY | 2024-09-30 15:54 | XMS_ITS | Encounter Summary ---
Author Organization [facility] Address 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 Gender Identity Not on file Sexual Orientation Not on file documented as of this encounter Plan of Treatment Upcoming Encounters Date Type Department Care Team (Late st Contact Info) Description 12/26/2024 3:00 PM CDT Office Visit [facility] Internal Medicine [address] [address] [place] [address] [place] [address] documented as of this encounter Visit Diagnoses Not on filedocumented in this encounter Care Teams Switch Coupler Relationship Specialty Start Date End Date Naye Scott MD [address] [place] [phone] PCP - General Internal Medicine 09/15/11 documented as of this encounter
--- OUTSIDE RECORDS SUMMARY | 2024-09-30 15:54 | XMS_ITS | Encounter Summary ---
Author Organization [facility] Address 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 Gender Identity Not on file Sexual Orientation Not on file documented as of this encounter Plan of Treatment Upcoming Encounters Date Type Department Care Team (Late st Contact Info) Description 12/26/2024 3:00 PM CDT Office Visit [facility] Internal Medicine [address] [address] [place] [address] [place] [address] documented as of this encounter Visit Diagnoses Not on filedocumented in this encounter Care Teams Dev Manager Relationship Specialty Start Date End Date Naye Scott MD [address] [place] [phone] PCP - General Internal Medicine 09/15/11 documented as of this encounter
--- OUTSIDE RECORDS SUMMARY | 2024-09-30 15:54 | XMS_ITS | Encounter Summary ---
Author Organization [facility] Address 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 Gender Identity Not on file Sexual Orientation Not on file documented as of this encounter Plan of Treatment Upcoming Encounters Date Type Department Care Team (Late st Contact Info) Description 12/26/2024 3:00 PM CDT Office Visit [facility] Internal Medicine [address] [address] [place] [address] [place] [address] documented as of this encounter Visit Diagnoses Not on filedocumented in this encounter Care Teams Chef De Partie Relationship Specialty Start Date End Date Naye Scott MD [address] [place] [address] PCP - General Internal Medicine 09/15/11 documented as of this encounter
--- OUTSIDE RECORDS SUMMARY | 2024-09-30 15:54 | XMS_ITS | Encounter Summary ---
Author Organization [facility] Address [address] [place] [address] Care Team Providers Care Public Address Technician Name Role Phone Naye Scott MD Primary Care Provider [phone] Encounter Details Date Type Department Care Team (Late st Contact Info) Description 11/12/2007 Outpatient Historical [facility] Rui Kilgore MD [address] [place] [address] Unspecified Essential Hypertension Social History Tobacco Use Types Packs/Day Years Used Date Smoking Tobacco: Never Alcohol Use Standard Drinks/Week Comments Not Asked 0 (1 standard drink = 0.6 oz pur e alcohol) Sex and Gender Information Value Date Recorded Sex Assigned at Not on file 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 Gender Identity Not on file Sexual Orientation Not on file documented as of this encounter Plan of Treatment Upcoming Encounters Date Type Department Care Team (Late st Contact Info) Description 12/26/2024 3:00 PM CDT Office Visit [facility] Internal Medicine [address] [address] [place] [address] [place] [address] [place] [address] documented as of this encounter Visit Diagnoses Diagnosis Unspecified essential hypertension documented in this encounter Care Teams Public Address Technician Relationship Specialty [place] [address] [place] [address] PCP - General Internal Medicine 09/15/11 documented as of this encounter
--- OUTSIDE RECORDS SUMMARY | 2024-09-30 15:54 | XMS_ITS | Encounter Summary ---
Author Organization [facility] Address 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 Gender Identity Not on file Sexual Orientation Not on file documented as of this encounter Plan of Treatment Upcoming Encounters Date Type Department Care Team (Late st Contact Info) Description 12/26/2024 3:00 PM CDT Office Visit [facility] Internal Medicine [address] [address] [place] [address] [place] [address] documented as of this encounter Visit Diagnoses Not on filedocumented in this encounter Care Teams Dimethylaniline Sulfator Operator Relationship Specialty Start Date End Date Naye Scott MD [address] [place] [address] PCP - General Internal Medicine 09/15/11 documented as of this encounter
[2024-09-30 16:08] VITALS: BP 135/70; PULSE 56; RESP 17; TEMP 36.9; O2SAT 98
--- NOTE | 2024-09-30 16:39 | ED.SKABFB ---
HPI - Skin/Abscess/Foreign Bdy General Chief complaint: Skin/Abscess/Foreign Body Stated complaint: Abscess to left hand- exploded today Time Seen by Provider: 09/30/24 15:39 Source: patient Mode of arrival: ambulatory Limitations: no limitations History of Present Illness HPI narrative: This is a 69-year-old male, with no significant past medical history who presents to the emergency department complaining of a lesion on the left hand that ?exploded. ? The patient states 3 weeks ago he noticed a growing, nontender bump on the dorsal aspect of the left hand. He states yesterday he noted what appeared to be a head at the lesion he placed a bandage over it and on removal today, what appeared to be scab like tissue came away with the bandage. He denies significant pain, similar lesions elsewhere or any known history of malignancy. He has no other complaints at this time. Related Data Allergies Allergy/AdvReac Type Severity Reaction Status Date / Time No Known Allergies Allergy Verified 09/30/24 13:46 Review of Systems Review of Systems: All systems reviewed & are unremarkable except as noted in HPI and below PMFSH Past Medical History Medical History No significant past medical history Surgical History Surgical History No significant past surgical history Social History Social History Smoking status: Never smoker Alcohol intake: never Substance use: never Exam Narrative: GENERAL: Well-developed, well-nourished, and in no acute distress. HEAD: Normocephalic, atraumatic. EYES: PERRLA and EOMI. CHEST: Clear to auscultation. No respiratory distress. No wheezes rales or rhonchi HEART: Regular rate and rhythm. No murmur heard. Normal peripheral pulses. ABDOMEN: Soft, nontender, nondistended, normal active bowel sounds. EXTREMITIES: Normal range of motion. No edema. SKIN: There is a 1 cm diameter ulcerative lesion with a proliferation of the skin noted on the dorsal aspect of the left hand overlying the 2nd metacarpal. There is no noted active bleeding or purulent drainage. There is no noted surrounding erythema. Skin otherwise warm, dry, no rash. NEURO: Alert and oriented x3. No focal deficit. Moving all 4 limbs spontaneously PSYCH: Normal mood and affect. Course Course Emergency Course: 16:43 - The patient's exam is concerning for malignancy. X-ray is not concerning for bony involvement. I advised the patient follow-up with a boxing inspector as soon as possible. I discussed the findings and recommendations with the patient. Discussed return and emergency precautions including signs/symptoms of neurovascular compromise and wound infection. The patient voiced understanding and agreement with the plan. All questions answered to his satisfaction. Vital Signs Vital signs: Vital Signs Temperature 97.3 F L 09/30/24 13:51 Pulse Rate 62 09/30/24 13:51 Respiratory Rate 20 09/30/24 13:51 Blood Pressure 166/63 H 09/30/24 13:51 Pulse Oximetry 98 09/30/24 13:51 Oxygen Delivery Room Air 09/30/24 13:51 Temperature 98.5 F 09/30/24 16:08 Pulse Rate 56 L 09/30/24 16:08 Respiratory Rate 17 09/30/24 16:08 Blood Pressure 135/70 09/30/24 16:08 Pulse Oximetry 98 09/30/24 16:08 Oxygen Delivery Room Air 09/30/24 13:51 MDM - Skin/Abscess/Foreign Bdy MDM Narrative Medical decision making narrative: Plan: Imaging, dermatology follow-up Differential Diagnosis Differential diagnosis: Likely insect bites and other (Squamous cell carcinoma, melanoma, other) Discharge Plan Discharge Clinical Impression: Mass of skin of left hand Patient Disposition: Home Condition: Stable Instructions: Antibiotic Form, Squamous Cell Carcinoma (DC) Additional Instructions: You were seen in the emergency department. Your exam is concerning for a possible skin cancer. X-rays not concerning for bone involvement. I recommend following up with a boxing inspector as soon as possible. If you develop bleeding, loss of sensation/strength in the hand, fevers with rapidly spreading redness, hand appears blue/cold, or if you have other emergent concerns for life, limb, or eyesight, return to the emergency department. Patient Language: Indonesian Follow-up/Referrals: [facility] [Other] - 1 Week [facility] [Other] - 1 Week UNKNOWN,DOCTOR [Primary Care Provider] - Time of Disposition: 16:42
== END 2024-09-30 17:39 | disposition home or self-care (01) ==
PROVIDERS: Emergency Provider Preventive Medicine Aerospace Medicine
DX: R22.32 Localized swelling, mass and lump, left upper limb (principal)
CPT/HCPCS: 73130; 99283